=== PATIENT | male | born 1965 | race American Indian/Alaskan Native ===

== ENCOUNTER 2018-07-23 18:28 | Emergency (ER) | payer SELFPAY ==
[2018-07-23] MEDS ORDERED: CATAPRES ONE (18:58)
[2018-07-23] MEDS ORDERED: CATAPRES PO ONE (18:59)
[2018-07-23] MEDS ORDERED: APRESOLINE IV ONE ×2 (19:32→21:20)
--- NOTE | 2018-07-23 19:46 | Emergency Department Report ---
HPI - General Chief Complaint: Extremity Injury, Lower Time Seen by Provider: 07/23/18 19:23 - HPI HPI: [id number] male presents to the emergency department with complaint of a 2 day history of pain to both his feet. It is a sharp, intense and burning pain that worsens when he tries to ambulate or bear weight on them. He denies any skin color change, swelling. He has never had these symptoms before. The patient has a history of hypertension, buk-irysgkm-rhyscgggu diabetes, coronary artery disease with previous LA and coronary stents in place. The patient presented with extremely elevated blood pressure despite compliance with his hydrochlorothiazide and amlodipine. He says that he stopped taking the metformin for his diabetes because it made him feel weird. He does drink multiple caffeinated drinks throughout the day. He denies any fever, chest pain, shortness of breath, back pain. He has not taken anything for his symptoms prior to presentation. ED Past Medical Hx - Past Medical History Previous Medical History?: Yes Hx Hypertension: Yes Hx Heart Attack/AMI: Yes Hx Congestive Heart Failure: Yes Hx Diabetes: Yes Hx Asthma: No Hx COPD: No Additional medical history: CAD - Surgical History Hx Coronary Stent: Yes - Social History Smoking Status: Never Smoker Substance Use Type: None - Medications Home Medications: Home Medications Medication Instructions Recorded Confirmed Last Taken Type Aspirin [Aspirin BABY CHEW TAB] 81 mg PO QDAY #30 tab.chew 10/15/14 02/12/16 Unknown Rx Lisinopril [Zestril TAB] 40 mg PO QDAY #30 tablet 10/15/14 02/12/16 Unknown Rx amLODIPine [Norvasc] 10 mg PO QDAY #30 tablet 10/15/14 02/12/16 Unknown Rx Aspirin [Aspirin TAB] 325 mg PO QDAY #30 tablet 02/12/16 Unknown Rx AtorvaSTATin [Lipitor] 40 mg PO QHS #30 tablet 02/12/16 Unknown Rx Clopidogrel [Plavix] 75 mg PO QDAY #30 tablet 02/12/16 Unknown Rx Furosemide [Lasix TAB] 40 mg PO QDAY #30 tablet 02/12/16 Unknown Rx ISOSORBIDE MONOnitrate [Imdur ER] 30 mg PO QDAY #30 tablet 02/12/16 Unknown Rx Insulin Glargine [Lantus VIAL] 20 units SUB-Q QHS #30 units 02/12/16 Unknown Rx Lisinopril [Zestril TAB] 40 mg PO DAILY #30 tablet 02/12/16 Unknown Rx Metoprolol [Lopressor TAB] 100 mg PO BID #60 tablet 02/12/16 Unknown Rx amLODIPine [Norvasc] 5 mg PO QDAY #30 tablet 02/12/16 Unknown Rx metFORMIN [Glucophage] 1,000 mg PO BIDDIAB #120 tablet 02/12/16 Unknown Rx Gabapentin [Neurontin] 300 mg PO BID #14 cap 07/23/18 Unknown Rx ED Review of Systems ROS: Stated complaint: FEET PAIN Other details as noted in HPI Comment: All other systems reviewed and negative Constitutional: denies: chills, fever Eyes: denies: eye pain, eye discharge, vision change ENT: denies: ear pain, throat pain Respiratory: denies: cough, shortness of breath, wheezing Cardiovascular: denies: chest pain, palpitations Gastrointestinal: denies: abdominal pain, nausea, diarrhea Genitourinary: denies: urgency, dysuria Musculoskeletal: arthralgia, myalgia. denies: joint swelling Skin: denies: rash, lesions Neurological: denies: headache, weakness Physical Exam - Physical Exam Vital Signs: Vital Signs 07/23/18 07/23/18 07/23/18 18:47 19:18 19:27 Temperature 99.4 F 98.4 F Pulse Rate 94 H 94 H Respiratory 18 11 L Rate Blood Pressure 263/165 Blood Pressure 230/121 [Left] O2 Sat by Pulse 96 100 100 Oximetry Physical Exam: GENERAL: The patient is well-developed well-nourished. HENT: Normocephalic. Atraumatic. Patient has moist mucous membranes. EYES: Extraocular motions are intact. Pupils equal reactive to light bilaterally. NECK: Supple. Trachea is midline. CHEST/LUNGS: Clear to auscultation. There is no respiratory distress noted. HEART/CARDIOVASCULAR: Regular. There is no tachycardia. There is no murmur. ABDOMEN: Abdomen is soft, nontender. Patient has normal bowel sounds. There is no abdominal distention. SKIN: Skin is warm and dry. NEURO: The patient is awake, alert, and oriented. The patient is cooperative. The patient has no focal neurologic deficits. The patient has normal speech. MUSCULOSKELETAL: Unable to reproduce foot tenderness to palpation. There is no limitation range of motion. There is no evidence of acute injury. Capillary refill less than 2 seconds and dorsalis pedis pulse +2 over 4 to the bilateral feet. ED Course Vital Signs 07/23/18 07/23/18 07/23/18 18:47 19:18 19:27 Temperature 99.4 F 98.4 F Pulse Rate 94 H 94 H Respiratory 18 11 L Rate Blood Pressure 263/165 Blood Pressure 230/121 [Left] O2 Sat by Pulse 96 100 100 Oximetry ED Medical Decision Making - Lab Data Result diagrams: 07/23/18 19:45 07/23/18 19:45 - EKG Data -: EKG Interpreted by Ne EKG shows normal: sinus rhythm, axis (left axis deviation), intervals, QRS complexes (LVH), ST-T waves (early repolarization) Rate: normal - EKG Data When compared to previous EKG there are: previous EKG unavailable Interpretation: LVH (early repolarization, sinus rhythm) - Medical Decision Making Patient presents with a few days of bilateral foot pain. Coincidentally, he presents with very elevated blood pressure despite compliance with his blood pressure medications. He denies any headache, chest pain, shortness of breath or any other obvious sequela of this elevated blood pressure. His complete blood count was normal. His metabolic panel also was normal including no signs of any renal insufficiency and he had euglycemia despite his history of diabetes without taking metformin. The patient was given a few doses of blood pressure medications and his blood pressure came down to a much more reasonable level. He says that he regularly checks his blood pressure and it is never as high as it was earlier today. Regarding the patient's foot pain, there are no signs of any swelling, cellulitis. He has good pedal pulses and capillary refill. It is possible that the patient has some neuropathy but it could also be osteoarthritis, plantar fasciitis versus other. The patient was given a dose of Toradol and says that that did help with his discomfort. He appears safe for discharge home at this time. He has been given multiple primary care clinics in the area to establish care. We discussed dietary and/or lifestyle changes to make to assist with his blood pressure. He will be started on a short course of Neurontin for suspected peripheral neuropathy. He will return to the ER with any worsening of symptoms or any acute distress. - Differential Diagnosis osteoarthritis, plantar fasciitis, peripheral neuropathy Critical Care Time: No Critical care attestation.: If time is entered above; I have spent that time in minutes in the direct care of this critically ill patient, excluding procedure time. ED Disposition Clinical Impression: Foot pain, bilateral Hypertension Qualifiers: Hypertension type: essential hypertension Qualified Code(s): I10 - Essential ( primary) hypertension Peripheral neuropathy Qualifiers: Peripheral neuropathy type: polyneuropathy, unspecified Qualified Code(s): G62.9 - Polyneuropathy, unspecified Disposition: TO HOME OR SELFCARE Is pt being admited?: No Condition: Stable Instructions: Diabetic Neuropathy (ED), Hypertension (ED) Additional Instructions: Please follow up with a primary care physician and a scraper tender. I am giving you a referral for multiple different primary care clinics in the area as well as the name of 2 different podiatrists. Please try and stay away from foods that are high in salt and caffeinated products. Keep a blood pressure log. Return to the emergency Department with any worsening of your symptoms or any acute distress. Prescriptions: Gabapentin [Neurontin] 300 mg PO BID #14 cap Referrals: [facility] [Outside] - 3-5 Days [facility] [Outside] - 3-5 Days [facility] [Outside] - 3-5 Days [facility] [Outside] - 3-5 Days AAYUSH SPEAR MD [Staff Physician] - 3-5 Days ACOSTA WALKER DPM [Staff Physician] - 3-5 Days Time of Disposition: 22:22
[2018-07-23 19:54] LABS: Basophils # (Auto) 0.1 K/mm3 (0.0-0.1); Basophils % (Auto) 0.9 % (0.0-1.8); Eosinophils # (Auto) 0.1 K/mm3 (0.0-0.4); Hematocrit 45.3 % (35.5-45.6); Hemoglobin 15.5 gm/dl (11.8-15.2); Lymphocytes # (Auto) 1.5 K/mm3 (1.2-5.4); Lymphocytes % (Auto) 25.6 % (13.4-35.0); Mean Corpuscular HGB Conc 34 % (32-34); Mean Corpuscular Hemoglobin 30 pg (28-32); Mean Corpuscular Volume 87 fl (84-94); Monocytes # (Auto) 0.5 K/mm3 (0.0-0.8); Monocytes % (Auto) 8.3 % (0.0-7.3); Platelet Count 177 K/mm3 (140-440); Red Blood Count 5.19 M/mm3 (3.65-5.03); Red Cell Distribution Width 13.6 % (13.2-15.2)
[2018-07-23 20:09] LABS: Alanine Aminotransferase 24 units/L (7-56); Albumin 4.3 g/dL (3.9-5); BUN/Creatinine Ratio 17; Blood Urea Nitrogen 15 mg/dL (9-20); Calcium 9.4 mg/dL (8.4-10.2); Hemolysis Index 0
[2018-07-23] MEDS ORDERED: TORADOL IV ONE (21:20)
[2018-07-23] MEDS ORDERED: TORADOL ONE (21:25)
[2018-07-23 22:30] VITALS: BP 173/87
== END 2018-07-23 22:34 | disposition home or self-care (01) ==
LOC: ED 18:28
DX: G62.9 Polyneuropathy, unspecified (principal); I11.0 Hypertensive heart disease with heart failure; I50.9 Heart failure, unspecified; E11.9 Type 2 diabetes mellitus without complications; Z86.73 Personal history of transient ischemic attack (TIA), and cerebral infarction without residual deficits; Z91.013 Allergy to seafood; Z79.84 Long term (current) use of oral hypoglycemic drugs
CPT/HCPCS: 36415; 80053; 85025; 93005; 93010; 96374; 96375; 99283; J0360; J1885

== ENCOUNTER 2021-03-26 05:05 | Emergency (ER) | payer SELFPAY ==
[2021-03-26 05:33] VITALS: BP 248/126
[2021-03-26] MEDS ORDERED: KETOROLAC 30 MG/1 ML INJ IM ONE (06:04)
[2021-03-26] MEDS ORDERED: oxyCODONE /ACETAMINOPHEN 5-325MG TAB PO ONE (06:05)
[2021-03-26] MEDS ORDERED: ONDANSETRON 4 MG ODT TAB PO ONE (06:06)
--- NOTE | 2021-03-26 06:08 | Emergency Department Report ---
ED General Adult HPI - General Chief complaint: Neck Pain/Injury Stated complaint: NECK PAIN Source: patient, family Mode of arrival: Ambulatory Limitations: No Limitations - History of Present Illness Initial comments: Patient is a 55-year-old -[place] male with a history of hypertension, [id number] diabetes, coronary artery disease s/p HI and CHF who presents to the ED with complaint of acute onset persistent severe right lateral neck pain that radiates to the right shoulder for the last 2 hours. Patient states that he was asleep at home when he turned to wake up but felt sharp pain on his right lateral neck that radiates to the right shoulder in and right posterior upper thoracic area. Patient states that he is unable to perform any active range of motion or twist his neck laterally and to the right side because of worsening pain. Patient states that at rest the pain is intermittent but waxes and wanes. Patient denies chest pain, shortness of breath, heavy lifting, fall, dizziness, syncope, headache, nausea and vomiting, cough, fever, chills, heavy lifting or traumatic injury. MD Complaint: Right lateral neck pain -: Sudden, hour(s) (2) Location: neck (right sided lateral neck pain) Radiation: extremity (right shoulder) Severity scale (0 -10): 8 Quality: aching, sharp Consistency: constant Improves with: none Worsens with: movement Associated Symptoms: denies: confusion, chest pain, cough, diaphoresis, fever/chills, headaches, loss of appetite, malaise, nausea/vomiting, rash, sei zure, shortness of breath, syncope, weakness Treatments Prior to Arrival: none - Related Data Previous Rx's Medication Instructions Recorded Last Taken Type Aspirin [Aspirin BABY CHEW TAB] 81 mg PO QDAY #30 tab.chew 10/15/14 Unknown Rx amLODIPine 10 mg PO QDAY #30 tablet 10/15/14 Unknown Rx lisinopriL [Zestril TAB] 40 mg PO QDAY #30 tablet 10/15/14 Unknown Rx Aspirin 325 mg PO QDAY #30 tablet 02/12/16 Unknown Rx AtorvaSTATin [Lipitor] 40 mg PO QHS #30 tablet 02/12/16 Unknown Rx Clopidogrel [Plavix] 75 mg PO QDAY #30 tablet 02/12/16 Unknown Rx Furosemide [Lasix TAB] 40 mg PO QDAY #30 tablet 04/09/16 Unknown Rx ISOSORBIDE MONOnitrate [Imdur ER] 30 mg PO QDAY #30 tablet 02/12/16 Unknown Rx Insulin Glargine [Lantus VIAL] 20 units SUB-Q QHS #30 units 02/12/16 Unknown Rx Metoprolol [Lopressor TAB] 100 mg PO BID #60 tablet 02/12/16 Unknown Rx amLODIPine 5 mg PO QDAY #30 tablet 02/12/16 Unknown Rx lisinopriL [Zestril TAB] 40 mg PO DAILY #30 tablet 02/12/16 Unknown Rx metFORMIN [Glucophage] 1,000 mg PO BIDDIAB #120 tablet 02/12/16 Unknown Rx Gabapentin 300 mg PO BID #14 cap 07/23/18 Unknown Rx Carisoprodol [Soma] 350 mg PO Q8H PRN #30 tablet 03/26/21 Unknown Rx Naproxen 500 mg PO Q12H PRN #30 tablet 03/26/21 Unknown Rx traMADoL [Ultram] 50 mg PO Q6HR PRN #12 tablet 03/26/21 Unknown Rx Allergies Allergy/AdvReac Type Severity Reaction Status Date / Time shellfish derived Allergy swelling Verified 07/23/18 18:47 and vomiting ED Review of Systems ROS: Stated complaint: NECK PAIN Other details as noted in HPI Constitutional: denies: chills, fever Eyes: denies: eye pain, eye discharge, vision change ENT: denies: ear pain, throat pain Respiratory: denies: cough, shortness of breath, wheezing Cardiovascular: denies: chest pain, palpitations Endocrine: no symptoms reported Gastrointestinal: denies: abdominal pain, nausea, diarrhea Genitourinary: denies: urgency, dysuria Musculoskeletal: arthralgia (Right lateral neck pain; right sternocleidomastoid muscle pain). denies: back pain, joint swelling Skin: denies: rash, lesions Neurological: denies: headache, weakness, paresthesias Psychiatric: denies: anxiety, depression Hematological/Lymphatic: denies: easy bleeding, easy bruising ED Past Medical Hx - Past Medical History Hx Hypertension: Yes Hx Heart Attack/AMI: Yes Hx Congestive Heart Failure: Yes Hx Diabetes: Yes Hx Asthma: No Hx COPD: No Additional medical history: CAD - Surgical History Hx Coronary Stent: Yes - Social History Smoking Status: Never Smoker Substance Use Type: Alcohol - Medications Home Medications: Home Medications Medication Instructions Recorded Confirmed Last Taken Type Aspirin [Aspirin BABY CHEW TAB] 81 mg PO QDAY #30 tab.chew 10/15/14 02/12/16 Unknown Rx amLODIPine 10 mg PO QDAY #30 tablet 10/15/14 02/12/16 Unknown Rx lisinopriL [Zestril TAB] 40 mg PO QDAY #30 tablet 10/15/14 02/12/16 Unknown Rx Aspirin 325 mg PO QDAY #30 tablet 02/12/16 Unknown Rx AtorvaSTATin [Lipitor] 40 mg PO QHS #30 tablet 02/12/16 Unknown Rx Clopidogrel [Plavix] 75 mg PO QDAY #30 tablet 02/12/16 Unknown Rx Furosemide [Lasix TAB] 40 mg PO QDAY #30 tablet 02/12/16 Unknown Rx ISOSORBIDE MONOnitrate [Imdur ER] 30 mg PO QDAY #30 tablet 02/12/16 Unknown Rx Insulin Glargine [Lantus VIAL] 20 units SUB-Q QHS #30 units 02/12/16 Unknown Rx Metoprolol [Lopressor TAB] 100 mg PO BID #60 tablet 02/12/16 Unknown Rx amLODIPine 5 mg PO QDAY #30 tablet 02/12/16 Unknown Rx lisinopriL [Zestril TAB] 40 mg PO DAILY #30 tablet 02/12/16 Unknown Rx metFORMIN [Glucophage] 1,000 mg PO BIDDIAB #120 tablet 02/12/16 Unknown Rx Gabapentin 300 mg PO BID #14 cap 07/23/18 Unknown Rx Carisoprodol [Soma] 350 mg PO Q8H PRN #30 tablet 03/26/21 Unknown Rx Naproxen 500 mg PO Q12H PRN #30 tablet 03/26/21 Unknown Rx traMADoL [Ultram] 50 mg PO Q6HR PRN #12 tablet 03/26/21 Unknown Rx ED Physical Exam - General Limitations: No Limitations General appearance: alert, in no apparent distress - Head Head exam: Present: atraumatic, normocephalic, normal inspection - Eye Eye exam: Present: normal appearance, PERRL, EOMI Pupils: Present: normal accommodation - ENT ENT exam: Present: normal exam, normal orophraynx, mucous membranes moist, TM's normal bilaterally, normal external ear exam - Neck Neck exam: Present: normal inspection, tenderness (Palpable severe right lateral sternocleidomastoid tenderness; palpable right lateral cervical paraspinal musculoskeletal tenderness with limited range of motion due to pain). Absent: full ROM, lymphadenopathy, thyromegaly - Respiratory Respiratory exam: Present: normal lung sounds bilaterally. Absent: respiratory distress, wheezes, rales, rhonchi, chest wall tenderness, accessory muscle use, prolonged expiratory - Cardiovascular Cardiovascular Exam: Present: regular rate, normal rhythm, normal heart sounds. Absent: systolic murmur, diastolic murmur, rubs, gallop - GI/Abdominal GI/Abdominal exam: Present: soft, normal bowel sounds. Absent: tenderness, guarding, rebound, hyperactive bowel sounds, hypoactive bowel sounds, organomegaly - Extremities Exam Extremities exam: Present: normal inspection, full ROM, tenderness (Palpable right lateral shoulder tenderness), normal capillary refill. Absent: pedal edema, joint swelling - Back Exam Back exam: Present: normal inspection, full ROM. Absent: tenderness, CVA tenderness (R), CVA tenderness (L), muscle spasm, paraspinal tenderness, vertebral tenderness - Neurological Exam Neurological exam: Present: alert, oriented X3, CN II-XII intact, normal gait, reflexes normal - Psychiatric Psychiatric exam: Present: normal affect, normal mood - Skin Skin exam: Present: warm, dry, intact, normal color. Absent: rash ED Course Vital Signs 03/26/21 05:32 Temperature 97.9 F Pulse Rate 88 Respiratory 18 Rate Blood Pressure 248/126 O2 Sat by Pulse 99 Oximetry ED Medical Decision Making - Medical Decision Making This is a 55-year-old -[place] male with a history of hypertension, [id number] diabetes, coronary artery disease s/p HI and CHF who presents to the ED with complaint of acute onset persistent severe right lateral neck pain that radiates to the right shoulder for the last 2 hours. Patient states that he was asleep at home when he turned to wake up but felt sharp pain on his right lateral neck that radiates to the right shoulder in and right posterior upper thoracic area. Patient states that he is unable to perform any active range of motion or twist his neck laterally and to the right side because of worsening pain. Patient states that at rest the pain is intermittent but waxes and wanes. In the ED, patient is alert and oriented x3 and is not in distress but appears to be in significant pain. Patient was treated in the ED for pain based on the physical exam findings and history concerning for acute torticollis on the right side or cervical sprain or cervical muscle strain as well as strain right-sided sternocleidomastoid. Patient was observed in the ED and on reevaluation, patient's pain is well controlled with medications. Patient was therefore discharged home on pain medications and advised to follow- up with his primary care physician in 5 to 7 days for reevaluation or return to the ED immediately if symptoms get worse. - Differential Diagnosis Cervical sprain; torticollis; cervical spine muscle strain; muscle spasm Critical care attestation.: If time is entered above; I have spent that time in minutes in the direct care of this critically ill patient, excluding procedure time. ED Disposition Clinical Impression: Right torticollis, Cervical paraspinal muscle spasm Strain of sternocleidomastoid muscle Qualifiers: Encounter type: initial encounter Qualified Code(s): S16.1XXA - Strain of muscle, fascia and tendon at neck level, initial encounter Disposition: TO HOME OR SELFCARE Is pt being admited?: No Does the pt Need Aspirin: No Condition: Stable Instructions: Muscle Cramps and Spasms, Yhga-ov-Nanz, Cervical Sprain, Acute Torticollis, Adult, Cervical Strain and Sprain Rehab-SportsMed Additional Instructions: Your symptoms are likely due to muscle strain of your neck which gets worse with any active range of motion of your neck. Therefore take medications with food, drink plenty of fluids and follow-up with your primary care physician in 3 to 5 days for reevaluation. Return to the ED immediately if symptoms get worse. Prescriptions: Naproxen 500 mg PO Q12H PRN #30 tablet PRN Reason: Pain , Severe (7-10) Carisoprodol [Soma] 350 mg PO Q8H PRN #30 tablet PRN Reason: Muscle Spasm traMADoL [Ultram] 50 mg PO Q6HR PRN #12 tablet PRN Reason: Pain Referrals: [facility] [Provider Group] - 3-5 Days Time of Disposition: 06:39 Print Language: PERUVIAN
== END 2021-03-26 07:30 | disposition home or self-care (01) ==
LOC: ED 05:05
DX: S16.1XXA Strain of muscle, fascia and tendon at neck level, initial encounter (principal); M43.6 Torticollis; M62.838 Other muscle spasm; I11.0 Hypertensive heart disease with heart failure; I50.9 Heart failure, unspecified; I25.2 Old myocardial infarction; E11.9 Type 2 diabetes mellitus without complications; I25.10 Atherosclerotic heart disease of native coronary artery without angina pectoris; Z91.013 Allergy to seafood; Z79.899 Other long term (current) drug therapy; X58.XXXA Exposure to other specified factors, initial encounter; Y93.89 Activity, other specified; Y92.89 Other specified places as the place of occurrence of the external cause; Y99.8 Other external cause status
CPT/HCPCS: 96372; 99283; J1885; Q0162

== ENCOUNTER 2021-07-19 17:42 | Inpatient (IN) | payer SELFPAY ==
--- NOTE | 2021-07-19 20:04 | Event Note ---
ED Screening Note ED Screening Note: 56-year-old F Citizen Of [place] male past no history of hypertension presents emergency department complaining of strokelike symptoms which started about 4 5 5 days ago and continued to linger since the onset also reports not been able to talk since the symptoms started. Currently has a dull dull headache but reports no palpitations. This initial assessment/diagnostic orders/clinical plan/treatment(s) is/are subject to change based on patients health status, clinical progression and re- assessment by fellow clinical providers in the ED. Further treatment and workup at subsequent clinical providers discretion. Patient/guardian urged not to elope from the ED as their condition may be serious if not clinically assessed and managed. Initial orders include: Labs, CT
[2021-07-19 20:25] LABS: Basophils # (Auto) 0.1 K/mm3 (0.0-0.1); Basophils % (Auto) 1.2 % (0.0-1.8); Eosinophils # (Auto) 0.1 K/mm3 (0.0-0.4); Hematocrit 47.8 % (35.5-45.6); Hemoglobin 16.2 gm/dl (11.8-15.2); Lymphocytes # (Auto) 2.4 K/mm3 (1.2-5.4); Lymphocytes % (Auto) 30.6 % (13.4-35.0); Mean Corpuscular HGB Conc 34 % (32-34); Mean Corpuscular Volume 89 fl (84-94); Monocytes # (Auto) 0.6 K/mm3 (0.0-0.8); Monocytes % (Auto) 7.7 % (0.0-7.3); Platelet Count 173 K/mm3 (140-440); Red Blood Count 5.36 M/mm3 (3.65-5.03); Red Cell Distribution Width 13.2 % (13.2-15.2)
[2021-07-19 20:37] LABS: INR 0.94 (0.87-1.13)
[2021-07-19 20:38] LABS: Partial Thromboplastin Time 27.6 Sec. (24.2-36.6); Thrombin Time 16.7 Sec. (15.1-19.6)
[2021-07-19 20:45] LABS: Alanine Aminotransferase 14 units/L (7-56); Albumin 4.5 g/dL (3.9-5); BUN/Creatinine Ratio 20; Blood Urea Nitrogen 20 mg/dL (9-20); Calcium 9.5 mg/dL (8.4-10.2); Hemolysis Index 20
[2021-07-19 20:48] LABS: Creatine Kinase MB 2.7 ng/mL (0.0-4.0)
--- NOTE | 2021-07-19 21:03 | Emergency Department Report ---
ED Neuro Deficit HPI - General Chief Complaint: Neuro Symptoms/Deficit Stated Complaint: SORETHROAT Time Seen by Provider: 07/19/21 20:39 Source: family Mode of arrival: Ambulatory Limitations: Other - History of Present Illness Initial Comments: Patient is 56 years old male with history of hypertension and previous stroke approximately 10 years ago according to the patient report with no residual. Patient presented to the ER today complaining of unable to speak since Sunday approximately 3 days ago. Patient did not seek medical attention. Patient is also complaining of left upper extremity weakness and left facial droop. Patient also complaining of mild headache. Patient denied any chest pain or shortness of breath. Patient also denied any ataxia or visual changes. - Related Data Home Medications: Previous Rx's Medication Instructions Recorded Last Taken Type Aspirin [Aspirin BABY CHEW TAB] 81 mg PO QDAY #30 tab.chew 10/15/14 Unknown Rx amLODIPine 10 mg PO QDAY #30 tablet 10/15/14 Unknown Rx lisinopriL [Zestril TAB] 40 mg PO QDAY #30 tablet 10/15/14 Unknown Rx Aspirin 325 mg PO QDAY #30 tablet 02/12/16 Unknown Rx AtorvaSTATin [Lipitor] 40 mg PO QHS #30 tablet 02/12/16 Unknown Rx Clopidogrel [Plavix] 75 mg PO QDAY #30 tablet 02/12/16 Unknown Rx Furosemide [Lasix TAB] 40 mg PO QDAY #30 tablet 02/12/16 Unknown Rx ISOSORBIDE MONOnitrate [Imdur ER] 30 mg PO QDAY #30 tablet 02/12/16 Unknown Rx Insulin Glargine [Lantus VIAL] 20 units SUB-Q QHS #30 units 02/12/16 Unknown Rx Metoprolol [Lopressor TAB] 100 mg PO BID #60 tablet 02/12/16 Unknown Rx amLODIPine 5 mg PO QDAY #30 tablet 02/12/16 Unknown Rx lisinopriL [Zestril TAB] 40 mg PO DAILY #30 tablet 02/12/16 Unknown Rx metFORMIN [Glucophage] 1,000 mg PO BIDDIAB #120 tablet 02/12/16 Unknown Rx Gabapentin 300 mg PO BID #14 cap 07/23/18 Unknown Rx Carisoprodol [Soma] 350 mg PO Q8H PRN #30 tablet 03/26/21 Unknown Rx Naproxen 500 mg PO Q12H PRN #30 tablet 03/26/21 Unknown Rx traMADoL [Ultram] 50 mg PO Q6HR PRN #12 tablet 03/26/21 Unknown Rx Allergies/Adverse Reactions: Allergies Allergy/AdvReac Type Severity Reaction Status Date / Time shellfish derived Allergy swelling Verified 07/19/21 19:42 and vomiting ED Review of Systems ROS: Stated complaint: SORETHROAT Other details as noted in HPI Comment: All other systems reviewed and negative Constitutional: denies: chills, fever Respiratory: denies: cough, shortness of breath, SOB with exertion Cardiovascular: denies: chest pain, palpitations Gastrointestinal: denies: abdominal pain, nausea, vomiting Musculoskeletal: denies: back pain Neurological: headache. denies: weakness, numbness, paresthesias, confusion, abnormal gait ED Past Medical Hx - Past Medical History Hx Hypertension: Yes Hx Heart Attack/AMI: Yes Hx Congestive Heart Failure: Yes Hx Diabetes: Yes Hx Asthma: No Hx COPD: No Additional medical history: CAD - Surgical History Hx Coronary Stent: Yes - Social History Smoking Status: Never Smoker - Medications Home Medications: Home Medications Medication Instructions Recorded Confirmed Last Taken Type Aspirin [Aspirin BABY CHEW TAB] 81 mg PO QDAY #30 tab.chew 10/15/14 02/12/16 Unknown Rx amLODIPine 10 mg PO QDAY #30 tablet 10/15/14 02/12/16 Unknown Rx lisinopriL [Zestril TAB] 40 mg PO QDAY #30 tablet 10/15/14 02/12/16 Unknown Rx Aspirin 325 mg PO QDAY #30 tablet 02/12/16 Unknown Rx AtorvaSTATin [Lipitor] 40 mg PO QHS #30 tablet 02/12/16 Unknown Rx Clopidogrel [Plavix] 75 mg PO QDAY #30 tablet 02/12/16 Unknown Rx Furosemide [Lasix TAB] 40 mg PO QDAY #30 tablet 02/12/16 Unknown Rx ISOSORBIDE MONOnitrate [Imdur ER] 30 mg PO QDAY #30 tablet 02/12/16 Unknown Rx Insulin Glargine [Lantus VIAL] 20 units SUB-Q QHS #30 units 02/12/16 Unknown Rx Metoprolol [Lopressor TAB] 100 mg PO BID #60 tablet 02/12/16 Unknown Rx amLODIPine 5 mg PO QDAY #30 tablet 02/12/16 Unknown Rx lisinopriL [Zestril TAB] 40 mg PO DAILY #30 tablet 02/12/16 Unknown Rx metFORMIN [Glucophage] 1,000 mg PO BIDDIAB #120 tablet 02/12/16 Unknown Rx Gabapentin 300 mg PO BID #14 cap 07/23/18 Unknown Rx Carisoprodol [Soma] 350 mg PO Q8H PRN #30 tablet 03/26/21 Unknown Rx Naproxen 500 mg PO Q12H PRN #30 tablet 03/26/21 Unknown Rx traMADoL [Ultram] 50 mg PO Q6HR PRN #12 tablet 03/26/21 Unknown Rx ED Neuro Physical Exam - General Limitations: Other General appearance: alert, in no apparent distress Suspected Stroke: Yes - Head Head exam: Present: atraumatic, normocephalic, normal inspection - Eye Eye exam: Present: normal appearance - ENT ENT exam: Present: normal exam, normal orophraynx, mucous membranes moist - Neck Neck exam: Present: normal inspection, full ROM. Absent: tenderness, meningismus - Respiratory Respiratory exam: Present: normal lung sounds bilaterally - Cardiovascular Cardiovascular Exam: Present: regular rate, normal rhythm, normal heart sounds - GI/Abdominal GI/Abdominal exam: Present: soft, normal bowel sounds. Absent: distended, tenderness, guarding, rebound, rigid, organomegaly, mass, bruit, pulsatile mass, hernia - Extremities Exam Extremities exam: Present: normal inspection, full ROM, normal capillary refill. Absent: tenderness, pedal edema, joint swelling, calf tenderness - Back Exam Back exam: Present: normal inspection, full ROM. Absent: CVA tenderness (R), CVA tenderness (L) - Neurological Exam Neurological exam: Present: alert, oriented X3 - NIHSS Assessment Interval: Baseline 1a. Level of Consciousness: alert/keenly responsive 1b. LOC Questions: answers both correctly 1c. LOC Commands: performs tasks correctly 2. Best Gaze: normal 3. Visual: no visual loss 4. Facial Palsy: partial paralysis 5b. Motor Arm Right: no drift 5a. Motor Arm Left: no drift 6a. Motor Leg Left: no drift 6b. Motor Leg Right: no drift 7. Limb Ataxia: absent 8. Sensory: normal 9. Best Language: severe aphasia 10. Dysarthria: mute/anarrthric 11. Extinction/Inattention: no abnormality Total Score: 6 Stroke Severity: Moderate Stroke - Psychiatric Psychiatric exam: Present: flat affect - Skin Skin exam: Present: warm, intact, normal color ED Course Vital Signs 07/19/21 07/19/21 07/19/21 19:42 19:45 20:40 Temperature 98.7 F Pulse Rate 87 82 Respiratory 15 Rate Blood Pressure Blood Pressure 220/96 [Right] O2 Sat by Pulse 97 96 Oximetry 07/19/21 07/19/21 07/19/21 20:46 20:51 21:24 Temperature Pulse Rate 80 80 Respiratory 14 18 10 L Rate Blood Pressure 115/38 228/131 Blood Pressure [Right] O2 Sat by Pulse 96 99 96 Oximetry 07/19/21 21:30 Temperature Pulse Rate 77 Respiratory 15 Rate Blood Pressure 228/131 Blood Pressure [Right] O2 Sat by Pulse 97 Oximetry - Lab Data Result diagrams: 07/19/21 20:11 07/19/21 20:11 Lab Results 07/19/21 07/19/21 07/19/21 Range/Units 20:03 20:11 20:11 WBC 8.0 (4.5-11.0) K/mm3 RBC 5.36 H (3.65-5.03) M/mm3 Hgb 16.2 H (11.8-15.2) gm/dl Hct 47.8 H (35.5-45.6) % MCV 89 (84-94) fl MCH 30 (28-32) pg MCHC 34 (32-34) % RDW 13.2 (13.2-15.2) % Plt Count 173 (140-440) K/mm3 Lymph % (Auto) 30.6 (13.4-35.0) % [place] % (Auto) 7.7 H (0.0-7.3) % Eos % (Auto) 1.0 (0.0-4.3) % Baso % (Auto) 1.2 (0.0-1.8) % Lymph # (Auto) 2.4 (1.2-5.4) K/mm3 [place] # (Auto) 0.6 (0.0-0.8) K/mm3 Eos # (Auto) 0.1 (0.0-0.4) K/mm3 Baso # (Auto) 0.1 (0.0-0.1) K/mm3 Seg Neutrophils % 59.5 (40.0-70.0) % Seg Neutrophils # 4.8 (1.8-7.7) K/mm3 PT 13.1 (12.2-14.9) Sec. INR 0.94 (0.87-1.13) APTT 27.6 (24.2-36.6) Sec. Thrombin Time 16.7 (15.1-19.6) Sec. Sodium (137-145) mmol/L Potassium (3.6-5.0) mmol/L Chloride (98-107) mmol/L Carbon Dioxide (22-30) mmol/L Anion Gap mmol/L BUN (9-20) mg/dL Creatinine (0.8-1.3) mg/dL Estimated GFR ml/min BUN/Creatinine Ratio % Glucose (75-100) mg/dL POC Glucose 79 (70-105) mg/dL Calcium (8.4-10.2) mg/dL Total Bilirubin (0.1-1.2) mg/dL AST (5-40) units/L ALT (7-56) units/L Alkaline Phosphatase (35-129) units/L Total Creatine Kinase (55-170) units/L CK-MB (CK-2) (0.0-4.0) ng/mL CK-MB (CK-2) Rel Index (0-4) Troponin T (0.00-0.029) ng/mL Total Protein (6.3-8.2) g/dL Albumin (3.9-5) g/dL Albumin/Globulin Ratio % 07/19/21 07/19/21 Range/Units 20:11 20:11 WBC (4.5-11.0) K/mm3 RBC (3.65-5.03) M/mm3 Hgb (11.8-15.2) gm/dl Hct (35.5-45.6) % MCV (84-94) fl MCH (28-32) pg MCHC (32-34) % RDW (13.2-15.2) % Plt Count (140-440) K/mm3 Lymph % (Auto) (13.4-35.0) % [place] % (Auto) (0.0-7.3) % Eos % (Auto) (0.0-4.3) % Baso % (Auto) (0.0-1.8) % Lymph # (Auto) (1.2-5.4) K/mm3 [place] # (Auto) (0.0-0.8) K/mm3 Eos # (Auto) (0.0-0.4) K/mm3 Baso # (Auto) (0.0-0.1) K/mm3 Seg Neutrophils % (40.0-70.0) % Seg Neutrophils # (1.8-7.7) K/mm3 PT (12.2-14.9) Sec. INR (0.87-1.13) APTT (24.2-36.6) Sec. Thrombin Time (15.1-19.6) Sec. Sodium 142 (137-145) mmol/L Potassium 4.1 (3.6-5.0) mmol/L Chloride 106.2 (98-107) mmol/L Carbon Dioxide 28 (22-30) mmol/L Anion Gap 12 mmol/L BUN 20 (9-20) mg/dL Creatinine 1.0 (0.8-1.3) mg/dL Estimated GFR > 60 ml/min BUN/Creatinine Ratio 20 % Glucose 92 (75-100) mg/dL POC Glucose (70-105) mg/dL Calcium 9.5 (8.4-10.2) mg/dL Total Bilirubin 1.10 (0.1-1.2) mg/dL AST 14 (5-40) units/L ALT 14 (7-56) units/L Alkaline Phosphatase 106 (35-129) units/L Total Creatine Kinase 111 (55-170) units/L CK-MB (CK-2) 2.7 (0.0-4.0) ng/mL CK-MB (CK-2) Rel Index 2.4 (0-4) Troponin T < 0.010 (0.00-0.029) ng/mL Total Protein 7.5 (6.3-8.2) g/dL Albumin 4.5 (3.9-5) g/dL Albumin/Globulin Ratio 1.5 % - EKG Data -: EKG Interpreted by Ak EKG shows normal: sinus rhythm Rate: normal Interpretation: no acute changes - Radiology Data Radiology results: report reviewed - Medical Decision Making Patient is 56 years old male with history of hypertension and previous stroke approximately 10 years ago according to the patient report with no residual. Patient presented to the ER today complaining of unable to speak since Sunday approximately 3 days ago. Patient did not seek medical attention. Patient is also complaining of left upper extremity weakness and left facial droop. Patient also complaining of mild headache. Patient denied any chest pain or shortness of breath. Patient also denied any ataxia or visual changes. Patient symptom has been going on for more than 3 days. Patient is not a TPA candidate or thrombectomy candidate. Stroke work-up initiated. CT brain without contrast is unremarkable. EKG shows sinus rhythm with no ST elevation or depression. Labs reviewed and is unremarkable. Patient blood pressure is 220/120. Patient given hydralazine and allowed permissive hypertension. I discussed the patient with Dr. Jeronimo, he agreed to admit the patient to medical service for further management. Critical Care Time: Yes Critical care time in (mins) excluding proc time.: 30 Critical care attestation.: If time is entered above; I have spent that time in minutes in the direct care of this critically ill patient, excluding procedure time. ED Disposition Clinical Impression: Acute CVA (cerebrovascular accident) Disposition: ADMITTED INPATIENT Is pt being admited?: Yes Condition: Stable
--- NOTE | 2021-07-19 21:25 | Cat Scan Report ---
. CT head/brain wo con INDICATION / CLINICAL INFORMATION: 56 years Male; Stroke symptoms. TECHNIQUE: Routine CT head without contrast. All CT scans at this location are performed using CT dos e reduction for ALARA by means of automated exposure control. COMPARISON: None. FINDINGS: BRAIN / INTRACRANIAL CONTENTS: Small lacunar infarcts are seen in the gangliocapsular regions, some o f which are age-indeterminate without diffusion imaging by MRI. Otherwise, no acute hemorrhage, mass effect, midline shift, hydrocephalus, or acute, large territori al infarct. No signs of significant atrophy or chronic infarct. There are moderate areas of decreased attenuation in the white matter of the cerebral hemispheres, as well as the gangliocapsular regions. These are nonspecific findings and may be related to microangio logan (hypertension, diabetes, atherosclerosis), given the patient's age. CRANIOCERVICAL JUNCTION: No significant abnormality. ORBITS: No significant abnormality of visualized orbits. SINUSES / MASTOIDS: Visualized paranasal sinuses and mastoid air cells are essentially clear. ADDITIONAL FINDINGS: Significant atherosclerotic disease seen in the anterior and posterior circulati on. IMPRESSION: 1. No focal mass, hemorrhage, hydrocephalus, or acute, large territorial infarct. Follow-up with diff usion imaging by MRI, as clinically warranted. Signer Name: Pawan Schmidt MD, III Signed: 07/19/2021 9:21 PM Workstation Name: [id number]
[2021-07-19] MEDS ORDERED: hydrALAZINE 20 MG/1 ML INJ IV ONE (21:28)
[2021-07-19] MEDS ORDERED: hydrALAZINE 20 MG/1 ML INJ ONE (21:29)
--- NOTE | 2021-07-19 21:41 | XRay Report ---
CHEST 1 VIEW 07/19/2021 8:00 PM INDICATION / CLINICAL INFORMATION: Dizziness and shortness of breath. COMPARISON: One view of the chest from 02/09/2016. FINDINGS: SUPPORT DEVICES: None. HEART / MEDIASTINUM: No significant abnormality. LUNGS / PLEURA: No significant pulmonary abnormality. No significant pleural effusion. No pneumothora x. ADDITIONAL FINDINGS: No significant additional findings. IMPRESSION: 1. No acute abnormality of the chest. Signer Name: Selvin Gonzales MD Signed: 07/19/2021 9:37 PM Workstation Name: [id number]
[2021-07-19] MEDS ORDERED: PROMETHAZINE 25 MG RECT SUPP PR PRN (22:35)
[2021-07-19] MEDS ORDERED: ACETAMINOPHEN 325 MG TAB PO PRN (22:35)
[2021-07-19] MEDS ORDERED: DEXTROSE 50% IN WATER (25GM) 50 ML SYRINGE IV PRN (22:35)
[2021-07-19] MEDS ORDERED: MAGNESIUM HYDROXIDE (MOM) ORAL LIQD UDC PO PRN ×2 (22:35)
[2021-07-19] MEDS ORDERED: MORPHINE 4 MG/1 ML INJ IV PRN (22:35)
[2021-07-19] MEDS ORDERED: ONDANSETRON 4 MG/2 ML INJ IV PRN ×2 (22:35)
[2021-07-19] MEDS ORDERED: MORPHINE 2 MG/1 ML INJ IV PRN (22:35)
[2021-07-19] MEDS ORDERED: METOCLOPRAMIDE 10 MG TAB PO PRN (22:35)
--- NOTE | 2021-07-19 22:56 | History and Physical Report ---
History of Present Illness Date of examination: 07/19/21 Date of admission: 07/19/21 21:58 Chief complaint: Left Sided weakness History of present illness: 56-year old -[place] male with known history of hypertension and CVA about 10 years ago presents to the emergency room room today complaining of inability to speak which has been ongoing for the past 3 days. Patient has also been having left upper and left lower extremity weakness with some facial droop. He denies any difficulty swallowing. Indicates he has been having some mild headache but no dizziness and no diaphoresis. Patient denies any chest pain or shortness of breath, no nausea vomiting, no abdominal pain. Patient had no residual deficit during the CVA about 10 years ago. Upon arrival in the emergency room blood pressure was quite elevated with systolic in the 200s and diastolic in the low 100s. Patient had a dose of IV hydralazine. Work-up in the emergency room today, chest x-ray and CT scan of the head were unremarkable. . Past History Past Medical History: acute HI, CAD, diabetes, heart failure, hypertension Past Surgical History: PTCA Social history: no significant social history Family history: no significant family history Medications and Allergies Allergies Allergy/AdvReac Type Severity Reaction Status Date / Time shellfish derived Allergy swelling Verified 07/19/21 19:42 and vomiting Home Medications Medication Instructions Recorded Confirmed Last Taken Type Aspirin [Aspirin BABY CHEW TAB] 81 mg PO QDAY #30 tab.chew 10/15/14 02/12/16 Unknown Rx amLODIPine 10 mg PO QDAY #30 tablet 10/15/14 02/12/16 Unknown Rx lisinopriL [Zestril TAB] 40 mg PO QDAY #30 tablet 10/15/14 02/12/16 Unknown Rx Aspirin 325 mg PO QDAY #30 tablet 02/12/16 Unknown Rx AtorvaSTATin [Lipitor] 40 mg PO QHS #30 tablet 02/12/16 Unknown Rx Clopidogrel [Plavix] 75 mg PO QDAY #30 tablet 02/12/16 Unknown Rx Furosemide [Lasix TAB] 40 mg PO QDAY #30 tablet 02/12/16 Unknown Rx ISOSORBIDE MONOnitrate [Imdur ER] 30 mg PO QDAY #30 tablet 02/12/16 Unknown Rx Insulin Glargine [Lantus VIAL] 20 units SUB-Q QHS #30 units 02/12/16 Unknown Rx Metoprolol [Lopressor TAB] 100 mg PO BID #60 tablet 02/12/16 Unknown Rx amLODIPine 5 mg PO QDAY #30 tablet 02/12/16 Unknown Rx lisinopriL [Zestril TAB] 40 mg PO DAILY #30 tablet 02/12/16 Unknown Rx metFORMIN [Glucophage] 1,000 mg PO BIDDIAB #120 tablet 02/12/16 Unknown Rx Gabapentin 300 mg PO BID #14 cap 07/23/18 Unknown Rx Carisoprodol [Soma] 350 mg PO Q8H PRN #30 tablet 03/26/21 Unknown Rx Naproxen 500 mg PO Q12H PRN #30 tablet 03/26/21 Unknown Rx traMADoL [Ultram] 50 mg PO Q6HR PRN #12 tablet 03/26/21 Unknown Rx Active Meds: Active Medications Acetaminophen (Acetaminophen 325 Mg Tab) 650 mg PO Q4H PRN PRN Reason: Pain MILD(1-3)/Fever >100.5/[place] Aspirin (Aspirin 325 Mg Tab) 325 mg PO QDAY PIED[place] Atorvastatin Calcium (Atorvastatin 40 Mg Tab) 40 mg PO QHS PIEDAD Bisacodyl (Bisacodyl 10 Mg Rect Supp) 10 mg ND QDAY PRN PRN Reason: Constipation Dextrose (Dextrose 50% In Water (25gm) 50 Ml Syringe) 50 ml IV Q30MIN PRN; Protocol PRN Reason: Hypoglycemia Dextrose (Dextrose 50% In Water (25gm) 50 Ml Syringe) 50 ml IV Q30MIN PRN; Protocol PRN Reason: Hypoglycemia Heparin Sodium (Porcine) (Heparin 5,000 Unit/1 Ml Vial) 5,000 unit SUB-Q Q8HR PIEDAD Hydralazine HCl (Hydralazine 20 Mg/1 Ml Inj) 10 mg IV Q4HR PRN PRN Reason: Blood Pressure Insulin Human Lispro (Insulin Lispro 100 Unit/Ml) 0 unit SUB-Q ACHS PIEDAD; Protocol Magnesium Hydroxide (Magnesium Hydroxide (Mom) Oral Liqd Udc) 30 ml PO Q4H PRN PRN Reason: Constipation Magnesium Hydroxide (Magnesium Hydroxide (Mom) Oral Liqd Udc) 30 ml PO Q4H PRN PRN Reason: Constipation Metoclopramide HCl (Metoclopramide 10 Mg Tab) 10 mg PO Q6H PRN PRN Reason: Nausea And Vomiting Morphine Sulfate (Morphine 2 Mg/1 Ml Inj) 2 mg IV Q4H PRN PRN Reason: Pain, Moderate (4-6) Morphine Sulfate (Morphine 4 Mg/1 Ml Inj) 4 mg IV Q4H PRN PRN Reason: Pain , Severe (7-10) Ondansetron HCl (Ondansetron 4 Mg/2 Ml Inj) 4 mg IV Q8H PRN PRN Reason: Nausea And Vomiting Ondansetron HCl (Ondansetron 4 Mg/2 Ml Inj) 4 mg IV Q8H PRN PRN Reason: Nausea And Vomiting Promethazine HCl (Promethazine 25 Mg Rect Supp) 25 mg ND Q6H PRN PRN Reason: Nausea And Vomiting Sodium Chloride (Sodium Chloride 0.9% 10 Ml Flush Syringe) 10 ml IV BID PIEDAD Sodium Chloride (Sodium Chloride 0.9% 10 Ml Flush Syringe) 10 ml IV PRN PRN PRN Reason: LINE FLUSH Sodium Chloride (Sodium Chloride 0.9% 10 Ml Flush Syringe) 10 ml INJ PRN PRN PRN Reason: LINE FLUSH Review of Systems Constitutional: no fever, no chills Ears, nose, mouth and throat: no nasal congestion, no sore throat Cardiovascular: no chest pain, no orthopnea, no palpitations Respiratory: no cough, no shortness of breath Gastrointestinal: no abdominal pain, no nausea, no vomiting, no diarrhea Genitourinary Male: no dysuria, no hematuria, no flank pain Musculoskeletal: no neck pain, no low back pain Integumentary: no rash, no pruritis Neurological: aphasia, paralysis (Left upper and lower extremity weakness.), no headaches, no confusion Psychiatric: no anxiety, no depression, no confusion Endocrine: no polyphagia, no polydipsia, no polyuria, no nocturia Exam - Constitutional Vitals: Temp Pulse Resp BP Pulse Ox 98.7 F 77 15 228/131 97 07/19/21 19:42 07/19/21 21:30 07/19/21 21:30 07/19/21 21:30 07/19/21 21:30 General appearance: Present: no acute distress, well-nourished - EENT Eyes: Present: PERRL, EOM intact. Absent: scleral icterus ENT: hearing intact, clear oral mucosa, dentition normal - Neck Neck: Present: supple, normal ROM - Respiratory Respiratory effort: normal Respiratory: bilateral: CTA - Cardiovascular Rhythm: regular Heart Sounds: Present: S1 & S2. Absent: gallop, systolic murmur, diastolic murmur, rub, click - Extremities Extremities: no ischemia, pulses intact, pulses symmetrical, No edema, normal temperature, normal color, Full ROM Peripheral Pulses: within normal limits - Abdominal General gastrointestinal: Present: soft, non-tender, non-distended, normal bowel sounds. Absent: mass - Integumentary Integumentary: Present: clear, warm, dry. Absent: rash - Musculoskeletal Musculoskeletal: left sided weakness - Psychiatric Psychiatric: appropriate mood/affect, memory intact, cooperative - Neurologic Neurologic: focal deficits (Mild faical assymetry), moves all extremities (Left upper and lower extremity weakness.) HEART Score - HEART Score Troponin: Troponin T < 0.010 ng/mL (0.00-0.029) 07/19/21 20:11 Results - Labs CBC & Chem 7: 07/20/21 04:38 07/20/21 04:38 Labs: Abnormal lab results 07/19/21 Range/Units 20:11 RBC 5.36 H (3.65-5.03) M/mm3 Hgb 16.2 H (11.8-15.2) gm/dl Hct 47.8 H (35.5-45.6) % [place] % (Auto) 7.7 H (0.0-7.3) % Assessment and Plan - Patient Problems (1) Acute CVA (cerebrovascular accident) Current Visit: Yes Status: Acute Plan to address problem: Patient admitted and placed on telemetry. We will commence patient on daily aspirin and statin. Patient will be scheduled for carotid Doppler, echocardiogram and MRI of the brain. Consult placed to neurologist for evaluation. (2) Accelerated hypertension Onset Date: 02/09/16 Current Visit: No Status: Acute Plan to address problem: We will allow patient for permissive hypertension in view of possible CVA. However we will monitor vital signs closely place patient on IV hydralazine as needed. (3) History of coronary artery disease Onset Date: 02/09/16 Current Visit: No Status: Acute Plan to address problem: We will continue routine home medications once reconciled. (4) Hyperlipidemia Current Visit: No Status: Acute Plan to address problem: Patient will be resumed on statin and will monitor lipid profile. (5) Diabetes Onset Date: 02/09/16 Current Visit: No Status: Chronic Plan to address problem: Patient placed on sliding scale insulin and Will monitor Accu-Cheks closely. (6) DVT prophylaxis Onset Date: 02/09/16 Current Visit: No Status: Acute Plan to address problem: Patient placed on subcutaneous heparin. (7) Full code status Current Visit: Yes Status: Acute Plan to address problem: Patient is full code.
[2021-07-19] MEDS ORDERED: LORazepam 2 MG/ML VIAL ONE (23:27)
[2021-07-20] MEDS ORDERED: LORazepam 2 MG/ML VIAL IV ONE (00:16)
[2021-07-20] MEDS ORDERED: hydrALAZINE 20 MG/1 ML INJ IV ONE (00:18)
[2021-07-20 05:14] LABS: Basophils % (Auto) 0.3 % (0.0-1.8); Eosinophils % (Auto) 0.3 % (0.0-4.3); Hematocrit 46.8 % (35.5-45.6); Lymphocytes # (Auto) 1.4 K/mm3 (1.2-5.4); Mean Corpuscular HGB Conc 34 % (32-34); Mean Corpuscular Volume 89 fl (84-94); Monocytes # (Auto) 0.4 K/mm3 (0.0-0.8); Monocytes % (Auto) 5.4 % (0.0-7.3); Platelet Count 169 K/mm3 (140-440); Red Blood Count 5.28 M/mm3 (3.65-5.03); Red Cell Distribution Width 13.3 % (13.2-15.2)
[2021-07-20 05:15] LABS: BUN/Creatinine Ratio 25; Blood Urea Nitrogen 20 mg/dL (9-20); Calcium 9.9 mg/dL (8.4-10.2); Hemolysis Index 11
[2021-07-20 05:45] LABS: Chol/HDL Ratio 4.24 %; HDL Cholesterol 49 mg/dL (40-59); LDL Cholesterol,Direct 164 mg/dL (50-130)
[2021-07-20] MEDS: HEPARIN 5,000 UNIT/1 ML VIAL SUB-Q SCH ×3 (07:00→22:09)
[2021-07-20] MEDS: INSULIN LISPRO 100 UNIT/ML SUB-Q SCH ×4 (07:51→22:09)
[2021-07-20] MEDS ORDERED: amLODIPine 5 MG TAB PO SCH (10:00)
--- NOTE | 2021-07-20 10:11 | Electrocardiograph Report ---
[facility] Test Date: 2021-07-19 Test Time: 20:08:02 Pat Name: EDGARDO ROMANO Department: Room: A472 1 Gender: M Wellness Coach: [id number] : 1965 Requested By: VANNESA MCCAULEY Order Number: [id number] Reading MD: Gianluca Frazier Measurements Intervals [place] Rate: 81 P: 58 RI: 137 QRS: 26 QRSD: 88 T: 134 QT: 379 QTc: 439 Interpretive Statements Sinus rhythm Probable left atrial enlargement Abnormal T, consider ischemia, lateral leads No previous ECG available for comparison Electronically Signed On 07-20-2021 10:11:12 EDT by Gianluca Frazier
--- NOTE | 2021-07-20 11:25 | Consultation ---
History of Present Illness Consult date: 07/20/21 Reason for Consult: CVA Chief complaint: Mute History of present illness: 56 yo male with htn, dm, chf, cva with left-sided symptoms, who presents with acute onset of muteness on 07/17/21. Limited history secondary to muteness. Deneis throat pain or sore throat. Past History Past Medical History: acute PR, CAD, diabetes, heart failure, hypertension Past Surgical History: PTCA Social history: no significant social history Family history: no significant family history Medications and Allergies Allergies Allergy/AdvReac Type Severity Reaction Status Date / Time shellfish derived Allergy swelling Verified 07/19/21 19:42 and vomiting Home Medications Medication Instructions Recorded Confirmed Last Taken Type Aspirin [Aspirin BABY CHEW TAB] 81 mg PO QDAY #30 tab.chew 10/15/14 02/12/16 Unknown Rx amLODIPine 10 mg PO QDAY #30 tablet 10/15/14 02/12/16 Unknown Rx lisinopriL [Zestril TAB] 40 mg PO QDAY #30 tablet 10/15/14 02/12/16 Unknown Rx Aspirin 325 mg PO QDAY #30 tablet 02/12/16 Unknown Rx AtorvaSTATin [Lipitor] 40 mg PO QHS #30 tablet 02/12/16 Unknown Rx Clopidogrel [Plavix] 75 mg PO QDAY #30 tablet 02/12/16 Unknown Rx Furosemide [Lasix TAB] 40 mg PO QDAY #30 tablet 02/12/16 Unknown Rx ISOSORBIDE MONOnitrate [Imdur ER] 30 mg PO QDAY #30 tablet 02/12/16 Unknown Rx Insulin Glargine [Lantus VIAL] 20 units SUB-Q QHS #30 units 02/12/16 Unknown Rx Metoprolol [Lopressor TAB] 100 mg PO BID #60 tablet 02/12/16 Unknown Rx amLODIPine 5 mg PO QDAY #30 tablet 02/12/16 Unknown Rx lisinopriL [Zestril TAB] 40 mg PO DAILY #30 tablet 02/12/16 Unknown Rx metFORMIN [Glucophage] 1,000 mg PO BIDDIAB #120 tablet 02/12/16 Unknown Rx Gabapentin 300 mg PO BID #14 cap 07/23/18 Unknown Rx Carisoprodol [Soma] 350 mg PO Q8H PRN #30 tablet 03/26/21 Unknown Rx Naproxen 500 mg PO Q12H PRN #30 tablet 03/26/21 Unknown Rx traMADoL [Ultram] 50 mg PO Q6HR PRN #12 tablet 03/26/21 Unknown Rx Active Meds: Active Medications Acetaminophen (Acetaminophen 325 Mg Tab) 650 mg PO Q4H PRN PRN Reason: Pain MILD(1-3)/Fever >100.5/[place] Amlodipine Besylate (Amlodipine 5 Mg Tab) 5 mg PO QDAY [facility] Aspirin (Aspirin 325 Mg Tab) 325 mg PO QDAY [facility] Atorvastatin Calcium (Atorvastatin 40 Mg Tab) 40 mg PO QHS [facility] Bisacodyl (Bisacodyl 10 Mg Rect Supp) 10 mg VA QDAY PRN PRN Reason: Constipation Clopidogrel Bisulfate (Clopidogrel 75 Mg Tab) 75 mg PO QDAY [facility] Dextrose (Dextrose 50% In Water (25gm) 50 Ml Syringe) 50 ml IV Q30MIN PRN; Protocol PRN Reason: Hypoglycemia Gabapentin (Gabapentin 300 Mg Cap) 300 mg PO BID [facility] Heparin Sodium (Porcine) (Heparin 5,000 Unit/1 Ml Vial) 5,000 unit SUB-Q Q8HR [facility] Last Admin: 07/20/21 07:00 Dose: 5,000 unit Documented by: Hydralazine HCl (Hydralazine 20 Mg/1 Ml Inj) 10 mg IV Q4HR PRN PRN Reason: Blood Pressure Insulin Human Lispro (Insulin Lispro 100 Unit/Ml) 0 unit SUB-Q [facility]; Protocol Last Admin: 07/20/21 07:51 Dose: Not Given Documented by: Lisinopril (Lisinopril 40 Mg Tab) 40 mg PO QDAY [facility] Magnesium Hydroxide (Magnesium Hydroxide (Mom) Oral Liqd Udc) 30 ml PO Q4H PRN PRN Reason: Constipation Metformin HCl (Metformin 500 Mg Tab) 1,000 mg PO BIDDIAB [facility] Metoclopramide HCl (Metoclopramide 10 Mg Tab) 10 mg PO Q6H PRN PRN Reason: Nausea And Vomiting Morphine Sulfate (Morphine 2 Mg/1 Ml Inj) 2 mg IV Q4H PRN PRN Reason: Pain, Moderate (4-6) Morphine Sulfate (Morphine 4 Mg/1 Ml Inj) 4 mg IV Q4H PRN PRN Reason: Pain , Severe (7-10) Ondansetron HCl (Ondansetron 4 Mg/2 Ml Inj) 4 mg IV Q8H PRN PRN Reason: Nausea And Vomiting Promethazine HCl (Promethazine 25 Mg Rect Supp) 25 mg VA Q6H PRN PRN Reason: Nausea And Vomiting Sodium Chloride (Sodium Chloride 0.9% 10 Ml Flush Syringe) 10 ml IV BID [place] Sodium Chloride (Sodium Chloride 0.9% 10 Ml Flush Syringe) 10 ml IV PRN PRN PRN Reason: LINE FLUSH Review of Systems All systems: negative (as per HPI;) Physical Examination - Vital Signs Vital Signs: Vital Signs Temp BP 98.7 F 220/96 07/19/21 19:42 07/19/21 19:42 - Physical Exam Narrative exam: Gen: nad, well-nourished; Head: normocephalic; Eyes: no gaze deviation; no ptosis; ENT: normal vocalization; CVS: warm and well-perfused; Pulm: no respiratory distress; GI: appears non-distended, protuberant; Ext: no cyanosis at distal extremities; Skin: no acute rash at distal extremities; Heme: no pathologic bruising at distal extremities; Neuro: alert, mute, follows commands; mild difficulty with complex commands; CN 2 - PERRL, visual blackmon grossly intact, CN 3, 4, 6 - EOMI, CN 5 - facial sens ation symmetric to light touch, CN 7 - facial movement symmetric, CN 8 - hearing grossly intact, CN 9, 10 - uvula midline, CN 11 - shrug symmetric, CN 12 - tongue midline; Motor - at least 4-/5 in all exts with mild drift at RUE/RLE; Sensory - light touch decreased at LUE/LLE, Cerebellar - fnf /hts intact except difficulty with RLE due to weakness, Gait - deferred secondary to fall risk; NIHSS (1a.) Level of Consciousness:0 (1b.) LOC Questions:2 (1c.) LOC Commands:0 (2.) Best Gaze:0 (3.) Visual:0 (4.) Facial Palsy:0 (5a.) Motor Arm, Left:0 (5b.) Motor Arm, Right:1 (6a.) Motor Leg, Left:0 (6b.) Motor Leg, Right:1 (7.) Limb Ataxia:0 (8.) Sensory:1 (9.) Best Language:3 (10.) Dysarthria:2 (11.) Extinction and Inattention:0 NIHSS Total Score: 10 Results - Laboratory Findings CBC and BMP: 07/20/21 04:38 07/20/21 04:38 Abnormal Lab Findings: Abnormal Labs 07/19/21 07/20/21 07/20/21 20:11 04:38 04:38 RBC 5.36 H 5.28 H Hgb 16.2 H 16.0 H Hct 47.8 H 46.8 H Towns % (Auto) 7.7 H Seg Neutrophils % 75.0 H Glucose 116 H Cholesterol 208 H LDL Cholesterol Direct 164 H Assessment and Plan 56 yo male with htn, dm, chf, cva with left-sided symptoms, who presents with acute onset of muteness on 07/17/21. Limited history secondary to muteness. Deneis throat pain or sore throat. 1. Acute Ischemic Stroke - aspirin 325 mg po qday; statin therapy for a goal ldl of 70; mri brain w/ wo contrast; tte; cta head/neck w/ wo contrast; st evaluaiton/monitoring; pt/ot evaluation; confirm ldl, tsh. 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 4. Right hemiparesis - pt/ot evaluation/monitoring. 5. Muteness - st evaluation/monitoring. Miguel Hamilton MD Neurology [id number]
--- NOTE | 2021-07-20 11:33 | Magnetic Resonance Report ---
MRI BRAIN 07/20/2021 INDICATION / CLINICAL INFORMATION: stroke, SLURRED SPEECH, RTSIDED WEAKNESS. TECHNIQUE: Multiplanar, multisequence MR images of the brain were obtained. COMPARISON: CT brain 07/19/2021 FINDINGS: BRAIN / INTRACRANIAL CONTENTS: Unenhanced MR images of the brain were obtained. There is extensive chronic white matter T2 weighted signal change in the periventricular and deep whi te matter of cerebral hemispheres. This pattern can be seen in extensive chronic small vessel ischemi c change, but would also be compatible with long-standing demyelination/multiple sclerosis. There is a 9 mm focus of restricted diffusion in the left centrum semiovale, consistent with acute umanzor bcortical ischemic injury. There is no evidence of acute hemorrhage. There is no evidence of mass. There are no abnormal extra-a xial fluid collections. Ventricles and sulci are within normal limits of size and shape for a patient of this age. EXTRACRANIAL: Unremarkable CRANIOCERVICAL JUNCTION: No significant abnormality. VASCULAR FLOW-VOIDS: No significant abnormality. IMPRESSION: Extensive chronic appearing white matter abnormality, with superimposed focal area of acute ischemic injury and left centrum semiovale. Signer Name: Chester Mejia MD Signed: 07/20/2021 11:29 AM Workstation Name: [id number]
--- NOTE | 2021-07-20 11:47 | Vascular Lab Report ---
DUPLEX DOPPLER ULTRASOUND CAROTID, BILATERAL INDICATION / CLINICAL INFORMATION: stroke. COMPARISON: None available. FINDINGS: RIGHT CAROTID: - PLAQUE ESTIMATE (%): < 50% - CCA velocity: 112 cm/sec. - ICA peak systolic velocity: 74 cm/sec. - ICA/CCA PSV Ratio: Less than 2 Right Vertebral Artery: Antegrade flow. LEFT CAROTID: - PLAQUE ESTIMATE (%): < 50% - CCA velocity: 115 cm/sec. - ICA peak systolic velocity: 107 cm/sec. - ICA/CCA PSV Ratio: Less than 2 Left Vertebral Artery: Antegrade flow. IMPRESSION: 1. Right Internal Carotid Artery: Less than 50% diameter stenosis. 2. Left Internal Carotid Artery: Less than 50% diameter stenosis. Velocity criteria are extrapolated from diameter data as defined by the Society of Radiologists in Ul trasound Consensus Conference, Radiology 2003; 229;340-346. NO STENOSIS (NORMAL) - Plaque = none; ICA PSV < 125 cm/sec; ICA/CCA PSV Ratio < 2.0 <50% STENOSIS - Plaque < 50%; ICA PSV < 125 cm/sec; ICA/CCA PSV Ratio < 2.0 50-69% STENOSIS - Plaque > 50%; ICA PSV = 125-230 cm/sec; ICA/CCA PSV Ratio = 2.0-4.0 >70% BUT <100% STENOSIS - Plaque > 50%; ICA PSV > 230 cm/sec; ICA/CCA PSV Ratio > 4.0 NEAR OCCLUSION - Plaque = visible lumen; ICA PSV = high/low/none; ICA/CCA PSV Ratio = variable TOTAL OCCLUSION - Plaque = no lumen; ICA PSV = none; ICA/CCA PSV Ratio = N/A Signer Name: Phil Ramos MD Signed: 07/20/2021 11:42 AM Workstation Name: [email or web address]
[2021-07-20] MEDS: GABAPENTIN 300 MG CAP PO SCH ×2 (12:40→22:09)
[2021-07-20] MEDS: metFORMIN 500 MG TAB PO SCH ×2 (12:40→16:01)
[2021-07-20] MEDS: LISINOPRIL 40 MG TAB PO SCH (12:40)
[2021-07-20] MEDS: CLOPIDOGREL 75 MG TAB PO SCH (12:40)
[2021-07-20] MEDS: ASPIRIN 325 MG TAB PO SCH (12:41)
--- NOTE | 2021-07-20 15:10 | Progress Note ---
Assessment and Plan (1) Acute CVA (cerebrovascular accident) Current Visit: Yes Status: Acute Plan to address problem: Patient admitted and placed on telemetry. We will commence patient on daily aspirin and statin. Patient will be scheduled for carotid Doppler, echocardiogram and MRI of the brain. Consult placed to neurologist for evaluation. (2) Accelerated hypertension Onset Date: 02/09/16 Current Visit: No Status: Acute Plan to address problem: We will allow patient for permissive hypertension in view of possible CVA. However we will monitor vital signs closely place patient on IV hydralazine as needed. (3) History of coronary artery disease Onset Date: 02/09/16 Current Visit: No Status: Acute Plan to address problem: We will continue routine home medications once reconciled. (4) Hyperlipidemia Current Visit: No Status: Acute Plan to address problem: Patient will be resumed on statin and will monitor lipid profile. (5) Diabetes Onset Date: 02/09/16 Current Visit: No Status: Chronic Plan to address problem: Patient placed on sliding scale insulin and Will monitor Accu-Cheks closely. (6) DVT prophylaxis Onset Date: 02/09/16 Current Visit: No Status: Acute Plan to address problem: Patient placed on subcutaneous heparin. Daily clinical course: 07/20/21: MRI of the brain suggestive for acute stroke, patient noted to be aphasic. Will await for PT and speech eval. Wait for 2D echo and carotid Doppler result. Follow neurology recommendation. Subjective Date of service: 07/20/21 Objective - Constitutional Vitals: Vital Signs - 12hr 07/20/21 07/20/21 07/20/21 03:16 03:30 03:46 Pulse Rate 68 65 65 Respiratory 15 16 15 Rate Blood Pressure 172/86 204/100 204/100 O2 Sat by Pulse 96 97 97 Oximetry 07/20/21 07/20/21 07/20/21 04:00 04:16 04:30 Pulse Rate 68 66 60 Respiratory 15 12 15 Rate Blood Pressure 187/91 187/91 174/85 O2 Sat by Pulse 97 96 98 Oximetry 07/20/21 07/20/21 07/20/21 04:46 05:00 05:16 Pulse Rate 82 85 70 Respiratory 15 19 14 Rate Blood Pressure 174/85 169/92 169/92 O2 Sat by Pulse 97 95 96 Oximetry 07/20/21 07/20/21 07/20/21 05:30 05:46 06:00 Pulse Rate 71 64 60 Respiratory 19 18 16 Rate Blood Pressure 178/84 178/84 177/87 O2 Sat by Pulse 97 97 94 Oximetry 07/20/21 07/20/21 07/20/21 06:16 06:30 06:46 Pulse Rate 64 56 L 68 Respiratory 16 15 11 L Rate Blood Pressure 177/87 175/92 175/92 O2 Sat by Pulse 97 97 97 Oximetry - Labs CBC & Chem 7: 07/20/21 04:38 07/20/21 04:38 Labs: Abnormal lab results 07/19/21 07/20/21 07/20/21 Range/Units 20:11 04:38 04:38 RBC 5.36 H 5.28 H (3.65-5.03) M/mm3 Hgb 16.2 H 16.0 H (11.8-15.2) gm/dl Hct 47.8 H 46.8 H (35.5-45.6) % [place]y % (Auto) 7.7 H (0.0-7.3) % Seg Neutrophils % 75.0 H (40.0-70.0) % Glucose 116 H (75-100) mg/dL Cholesterol 208 H (50-199) mg/dL LDL Cholesterol Direct 164 H (50-130) mg/dL HEART Score - HEART Score Troponin: Troponin T < 0.010 ng/mL (0.00-0.029) 07/19/21 20:11
[2021-07-20] MEDS: hydrALAZINE 25 MG TAB PO SCH ×2 (16:02→22:08)
[2021-07-21] MEDS: HEPARIN 5,000 UNIT/1 ML VIAL SUB-Q SCH ×2 (05:36→12:21)
[2021-07-21] MEDS: hydrALAZINE 25 MG TAB PO SCH (05:37)
[2021-07-21] MEDS: metFORMIN 500 MG TAB PO SCH ×2 (08:55→18:21)
[2021-07-21] MEDS: INSULIN LISPRO 100 UNIT/ML SUB-Q SCH ×2 (08:55→18:20)
[2021-07-21] MEDS ORDERED: hydrALAZINE 25 MG TAB PO SCH (11:36)
[2021-07-21] MEDS: GABAPENTIN 300 MG CAP PO SCH (12:20)
[2021-07-21] MEDS: CLOPIDOGREL 75 MG TAB PO SCH (12:20)
[2021-07-21] MEDS: amLODIPine 10 MG TAB PO SCH (12:20)
[2021-07-21] MEDS: LISINOPRIL 40 MG TAB PO SCH (12:20)
[2021-07-21] MEDS: ASPIRIN 325 MG TAB PO SCH (12:20)
--- NOTE | 2021-07-21 16:10 | Magnetic Resonance Report ---
MR brain w con INDICATION / CLINICAL INFORMATION: 56 years Male; Neoplasm pt presenting with muteness. TECHNIQUE: Multiplanar, multisequence MR images of the brain were obtained. COMPARISON: The study is compared to the previous noncontrast MRI of 07/19/2021. FINDINGS: BRAIN / INTRACRANIAL CONTENTS: On the earlier noncontrast study, there was note of an acute to infarc t involving left jovel radiata. There were notable white matter findings, particularly involving the periventricular regions. There are old lacunar infarct was seen along the head of the left caudate a nd within the deep cerebral white matter. However, the additional postcontrast imaging reveals no rafi dence of corresponding intracranial enhancing lesions. ADDITIONAL FINDINGS: None. IMPRESSION: 1. Additional postcontrast imaging reveals continued extensive cerebral white matter disease as descr ibed without evidence of corresponding enhancement. Signer Name: Rayo Everett MD Signed: 07/21/2021 4:06 PM Workstation Name: [id number]
--- NOTE | 2021-07-21 16:35 | Progress Note ---
Assessment and Plan (1) Acute CVA (cerebrovascular accident) Current Visit: Yes Status: Acute Plan to address problem: Patient admitted and placed on telemetry. We will commence patient on daily aspirin and statin. Patient will be scheduled for carotid Doppler, echocardiogram and MRI of the brain. Consult placed to neurologist for evaluation. (2) Accelerated hypertension Onset Date: 02/09/16 Current Visit: No Status: Acute Plan to address problem: We will allow patient for permissive hypertension in view of possible CVA. However we will monitor vital signs closely place patient on IV hydralazine as needed. (3) History of coronary artery disease Onset Date: 02/09/16 Current Visit: No Status: Acute Plan to address problem: We will continue routine home medications once reconciled. (4) Hyperlipidemia Current Visit: No Status: Acute Plan to address problem: Patient will be resumed on statin and will monitor lipid profile. (5) Diabetes Onset Date: 02/09/16 Current Visit: No Status: Chronic Plan to address problem: Patient placed on sliding scale insulin and Will monitor Accu-Cheks closely. (6) DVT prophylaxis Onset Date: 02/09/16 Current Visit: No Status: Acute Plan to address problem: Patient placed on subcutaneous heparin. Daily clinical course: 07/20/21: MRI of the brain suggestive for acute stroke, patient noted to be aphasic. Will await for PT and speech eval. Wait for 2D echo and carotid Doppler result. Follow neurology recommendation. 07/21/21: Speech therapy recommended pured diet with thin liquid. Patient has right upper extremity weakness and patient is aphasic. Neurology recommended MRI brain with contrast to rule out any underlying malignancy. 2D echo showed preserved EF. Continue to follow clinically. PT recommended acute rehab. Subjective Date of service: 07/21/21 Objective - Constitutional Vitals: Vital Signs - 12hr 07/21/21 07/21/21 07/21/21 07:31 09:00 12:07 Temperature 98.0 F 98.3 F Pulse Rate 61 61 96 H Respiratory 20 20 Rate Blood Pressure 172/86 186/96 O2 Sat by Pulse 96 98 Oximetry 07/21/21 07/21/21 13:03 15:42 Temperature 97.3 F L Pulse Rate 75 Respiratory 20 Rate Blood Pressure 186/94 O2 Sat by Pulse 97 97 Oximetry - Labs CBC & Chem 7: 07/20/21 04:38 07/20/21 04:38 HEART Score - HEART Score Troponin: Troponin T < 0.010 ng/mL (0.00-0.029) 07/19/21 20:11
[2021-07-21] MEDS ORDERED: D5W/0.9% NACL 1,000 ML IV SCH (17:00)
[2021-07-21] MEDS: hydrALAZINE 100 MG TAB PO SCH (18:22)
[2021-07-21] MEDS: hydrALAZINE 20 MG/1 ML INJ IV PRN (20:34)
[2021-07-22] MEDS: hydrALAZINE 100 MG TAB PO SCH ×4 (03:54→22:58)
[2021-07-22] MEDS: GABAPENTIN 300 MG CAP PO SCH ×3 (03:54→22:59)
[2021-07-22] MEDS: INSULIN LISPRO 100 UNIT/ML SUB-Q SCH ×5 (03:55→23:00)
[2021-07-22] MEDS: HEPARIN 5,000 UNIT/1 ML VIAL SUB-Q SCH ×4 (03:55→22:59)
[2021-07-22] MEDS: metFORMIN 500 MG TAB PO SCH ×2 (08:47→16:19)
[2021-07-22] MEDS: LISINOPRIL 40 MG TAB PO SCH (11:37)
[2021-07-22] MEDS: amLODIPine 10 MG TAB PO SCH (11:37)
[2021-07-22] MEDS: ASPIRIN 325 MG TAB PO SCH (11:37)
[2021-07-22] MEDS: CLOPIDOGREL 75 MG TAB PO SCH (11:37)
--- NOTE | 2021-07-22 14:18 | Discharge Summary ---
Providers - Providers Date of Admission: 07/19/21 21:58 Date of discharge: 07/22/21 Attending physician: GRAYSON PENDLETON 07/19/21 22:35 Consult to Physician [CONS] Routine Comment: Consulting Provider: LAURO HESS Physician Instructions: Reason For Exam: CVA 07/19/21 22:36 Consult to Dietitian/Nutrition [CONS] Routine Physician Instructions: Reason For Exam: Reason for Consult: Diet education Occupational Therapy Evaluate and Treat [CONS] Routine Comment: Reason For Exam: Neuro deficits Physical Therapy Evaluation and Treat [CONS] Routine Comment: Reason For Exam: Neuro deficits 07/20/21 17:53 Speech Therapy Evaluation and Treat [CONS] Routine Reason For Exam: coughing with food Primary care physician: WATER PROJECT MANAGER Hospitalization Condition: Stable Disposition: HOME HEALTH CARE SERVICE Final Discharge Diagnosis (Prints w/discharge instructions): Acute subcortical ischemic CVA (acute ischemic injury at the left centrum semiovale). Hypertension. History of prior CVA with left-sided weakness. History of coronary artery disease. Diabetes mellitus type 2. Hyperlipidemia Time spent for discharge: 34 minutes Core Measure Documentation - Palliative Care Palliative Care/ Comfort Measures: Not Applicable - Core Measures Any of the following diagnoses?: stroke - Stroke Discharge Requirements Statin for LDL = or >70 mg/dl on DC: Yes Anticoag for atrial fib/atrial flutter: Not Applicable Antithrombotic for ischemic stroke: Yes Exam - Constitutional Vitals: Temp Pulse Resp BP Pulse Ox 98.3 F 77 20 198/89 98 07/22/21 11:59 07/22/21 11:59 07/22/21 11:59 07/22/21 11:59 07/22/21 11:59 Plan Activity: advance as tolerated Weight Bearing Status: Weight Bear as Tolerated Diet: low fat, low cholesterol, diabetic Special Instructions: record daily BP diary, record blood sugar diary, physical therapy, occupational therapy Follow up with: PRIMARY CAREMD [Primary Care Provider] - 3-5 Days DON GAYLE MD [Staff Physician] - 7 Days Prescriptions: hydrALAZINE [Apresoline TAB] 100 mg PO Q8HR #90 tab
[2021-07-22] MEDS: hydrALAZINE 20 MG/1 ML INJ IV PRN ×2 (14:25→18:34)
[2021-07-22] MEDS: METOPROLOL TARTRATE 100 MG TAB PO SCH ×2 (16:06→22:59)
--- NOTE | 2021-07-22 19:43 | Event Note ---
Date: 07/22/21 Planned to admit patient to IRU today however, he is not currently appropriate for IRU. Patient is refusing to take PO medications and is not eating. A review of the vitals show very elevated BP. Review of the MAR shows he was not taking PO meds on /Sunday. Nursing states he stopped eating. We can still bring him to IRU but we need to make sure he is taking medications and that his BP is controlled in order for him to participate in therapy. Would be good to know why he is refusing to take PO. Feel free to call me on my cell phone to discuss if needed.
[2021-07-22] MEDS ORDERED: METOPROLOL TARTRATE 50 MG TAB PO SCH (22:00)
[2021-07-23] MEDS: hydrALAZINE 20 MG/1 ML INJ IV PRN ×3 (01:37→20:39)
[2021-07-23] MEDS: hydrALAZINE 100 MG TAB PO SCH ×3 (06:49→21:00)
[2021-07-23] MEDS: HEPARIN 5,000 UNIT/1 ML VIAL SUB-Q SCH ×3 (06:50→21:01)
[2021-07-23] MEDS: amLODIPine 10 MG TAB PO SCH (09:30)
[2021-07-23] MEDS: GABAPENTIN 300 MG CAP PO SCH ×2 (09:30→21:00)
[2021-07-23] MEDS: METOPROLOL TARTRATE 100 MG TAB PO SCH ×2 (09:30→21:00)
[2021-07-23] MEDS: ASPIRIN 325 MG TAB PO SCH (09:31)
[2021-07-23] MEDS: CLOPIDOGREL 75 MG TAB PO SCH (09:31)
[2021-07-23] MEDS: INSULIN LISPRO 100 UNIT/ML SUB-Q SCH ×3 (09:31→20:59)
[2021-07-23] MEDS: LISINOPRIL 40 MG TAB PO SCH (09:31)
[2021-07-23] MEDS: metFORMIN 500 MG TAB PO SCH ×2 (09:31→20:59)
[2021-07-23] MEDS: FUROSEMIDE 40 MG TAB PO SCH (09:31)
--- NOTE | 2021-07-23 17:08 | Progress Note ---
Assessment and Plan (1) Acute CVA (cerebrovascular accident) Current Visit: Yes Status: Acute Plan to address problem: Patient admitted and placed on telemetry. We will commence patient on daily aspirin and statin. Patient will be scheduled for carotid Doppler, echocardiogram and MRI of the brain. Consult placed to neurologist for evaluation. (2) Accelerated hypertension Onset Date: 02/09/16 Current Visit: No Status: Acute Plan to address problem: We will allow patient for permissive hypertension in view of possible CVA. However we will monitor vital signs closely place patient on IV hydralazine as needed. (3) History of coronary artery disease Onset Date: 02/09/16 Current Visit: No Status: Acute Plan to address problem: We will continue routine home medications once reconciled. (4) Hyperlipidemia Current Visit: No Status: Acute Plan to address problem: Patient will be resumed on statin and will monitor lipid profile. (5) Diabetes Onset Date: 02/09/16 Current Visit: No Status: Chronic Plan to address problem: Patient placed on sliding scale insulin and Will monitor Accu-Cheks closely. (6) DVT prophylaxis Onset Date: 02/09/16 Current Visit: No Status: Acute Plan to address problem: Patient placed on subcutaneous heparin. Daily clinical course: 07/20/21: MRI of the brain suggestive for acute stroke, patient noted to be aphasic. Will await for PT and speech eval. Wait for 2D echo and carotid Doppler result. Follow neurology recommendation. 07/21/21: Speech therapy recommended pured diet with thin liquid. Patient has right upper extremity weakness and patient is aphasic. Neurology recommended MRI brain with contrast to rule out any underlying malignancy. 2D echo showed preserved EF. Continue to follow clinically. PT recommended acute rehab. 07/22/21; patient was not admitted for acute rehab b/o elevated BP. 07/23/21; discussed with patient that he needs to take medication Subjective Date of service: 07/23/21 Objective - Constitutional Vitals: Vital Signs - 12hr 07/23/21 07/23/21 07/23/21 07:49 10:00 12:12 Temperature 99.1 F 98.7 F Pulse Rate 99 H 89 87 Respiratory 18 18 Rate Blood Pressure 164/93 121/66 O2 Sat by Pulse 95 98 95 Oximetry 07/23/21 16:37 Temperature 99.0 F Pulse Rate 92 H Respiratory 18 Rate Blood Pressure 186/82 O2 Sat by Pulse 96 Oximetry - Labs CBC & Chem 7: 07/20/21 04:38 07/20/21 04:38 Labs: Abnormal lab results 07/23/21 Range/Units 07:33 POC Glucose 106 H (70-105) mg/dL HEART Score - HEART Score Troponin: Troponin T < 0.010 ng/mL (0.00-0.029) 07/19/21 20:11
[2021-07-24] MEDS: HEPARIN 5,000 UNIT/1 ML VIAL SUB-Q SCH ×3 (06:03→21:27)
[2021-07-24] MEDS: hydrALAZINE 20 MG/1 ML INJ IV PRN ×2 (06:03→21:29)
[2021-07-24] MEDS: hydrALAZINE 100 MG TAB PO SCH ×3 (06:04→21:27)
[2021-07-24] MEDS: INSULIN LISPRO 100 UNIT/ML SUB-Q SCH ×4 (07:40→21:27)
[2021-07-24] MEDS: metFORMIN 500 MG TAB PO SCH ×2 (07:41→17:54)
[2021-07-24] MEDS: amLODIPine 10 MG TAB PO SCH (09:39)
[2021-07-24] MEDS: LISINOPRIL 40 MG TAB PO SCH (09:40)
[2021-07-24] MEDS: FUROSEMIDE 40 MG TAB PO SCH (09:40)
[2021-07-24] MEDS: ASPIRIN 325 MG TAB PO SCH (09:40)
[2021-07-24] MEDS: GABAPENTIN 300 MG CAP PO SCH ×2 (09:40→21:27)
[2021-07-24] MEDS: CLOPIDOGREL 75 MG TAB PO SCH (09:40)
[2021-07-24] MEDS: METOPROLOL TARTRATE 100 MG TAB PO SCH ×2 (09:40→21:28)
[2021-07-24] MEDS ORDERED: cloNIDine TTS 0.2 MG/24 HR PATCH TD SCH (15:30)
--- NOTE | 2021-07-24 15:52 | Progress Note ---
Assessment and Plan (1) Acute CVA (cerebrovascular accident) Current Visit: Yes Status: Acute Plan to address problem: Patient admitted and placed on telemetry. We will commence patient on daily aspirin and statin. Patient will be scheduled for carotid Doppler, echocardiogram and MRI of the brain. Consult placed to neurologist for evaluation. (2) Accelerated hypertension Onset Date: 02/09/16 Current Visit: No Status: Acute Plan to address problem: We will allow patient for permissive hypertension in view of possible CVA. However we will monitor vital signs closely place patient on IV hydralazine as needed. (3) History of coronary artery disease Onset Date: 02/09/16 Current Visit: No Status: Acute Plan to address problem: We will continue routine home medications once reconciled. (4) Hyperlipidemia Current Visit: No Status: Acute Plan to address problem: Patient will be resumed on statin and will monitor lipid profile. (5) Diabetes Onset Date: 02/09/16 Current Visit: No Status: Chronic Plan to address problem: Patient placed on sliding scale insulin and Will monitor Accu-Cheks closely. (6) DVT prophylaxis Onset Date: 02/09/16 Current Visit: No Status: Acute Plan to address problem: Patient placed on subcutaneous heparin. Daily clinical course: 07/20/21: MRI of the brain suggestive for acute stroke, patient noted to be aphasic. Will await for PT and speech eval. Wait for 2D echo and carotid Doppler result. Follow neurology recommendation. 07/21/21: Speech therapy recommended pured diet with thin liquid. Patient has right upper extremity weakness and patient is aphasic. Neurology recommended MRI brain with contrast to rule out any underlying malignancy. 2D echo showed preserved EF. Continue to follow clinically. PT recommended acute rehab. 07/22/21; patient was not admitted for acute rehab b/o elevated BP. 07/23/21; discussed with patient that he needs to take medication Subjective Date of service: 07/24/21 Objective - Constitutional Vitals: Vital Signs - 12hr 07/24/21 07/24/21 07/24/21 06:03 07:45 10:00 Temperature 98.2 F Pulse Rate 110 H 110 H Respiratory 18 Rate Blood Pressure 186/80 130/67 O2 Sat by Pulse 92 96 Oximetry 07/24/21 07/24/21 11:23 15:48 Temperature 98.0 F Pulse Rate 94 H 94 H Respiratory 18 Rate Blood Pressure 159/66 159/66 O2 Sat by Pulse 95 Oximetry - Labs CBC & Chem 7: 07/20/21 04:38 07/20/21 04:38 Labs: Abnormal lab results 07/24/21 Range/Units 07:05 POC Glucose 125 H (70-105) mg/dL HEART Score - HEART Score Troponin: Troponin T < 0.010 ng/mL (0.00-0.029) 07/19/21 20:11
[2021-07-24] MEDS ORDERED: D5W/0.9% NACL 1,000 ML IV SCH (17:00)
[2021-07-25] MEDS: hydrALAZINE 100 MG TAB PO SCH ×2 (05:03→15:52)
[2021-07-25] MEDS: HEPARIN 5,000 UNIT/1 ML VIAL SUB-Q SCH ×2 (05:03→16:58)
[2021-07-25] MEDS: metFORMIN 500 MG TAB PO SCH (08:33)
[2021-07-25] MEDS: INSULIN LISPRO 100 UNIT/ML SUB-Q SCH ×2 (08:33→16:58)
--- NOTE | 2021-07-25 09:28 | Consultation ---
History of Present Illness Consult date: 07/25/21 Reason for Consult: right side weakness 07/19 History of present illness: Left Sided weakness History of present illness: 56-year old -[place] male with known history of hypertension and CVA about 10 years ago presents to the emergency room room today complaining of inability to speak which has been ongoing for the past 3 days. Patient has also been having right upper and and to a lesser extent lower extremity weakness with significant right facial droop. He is with difficulty swallowing. Indicates he has been having some mild headache but no dizziness and no diaphoresis. Patient denies any chest pain or shortness of breath, no nausea vomiting, no abdominal pain. Patient had no residual deficit during the CVA about 10 years ago. hx is difficult to obtains due to pt. aphasia Upon arrival in the emergency room blood pressure was quite elevated with systolic in the 200s and diastolic in the low 100s. Patient had a dose of IV hydralazine. Work-up in the emergency room today, chest x-ray and CT scan of the head were unremarkable. mRI brain done with and without gd is remarkable for small vesseles disease and left jovel radiata infarct Acute. echo is # EF 50-55% . Past History Past Medical History: acute [place], CAD, diabetes, heart failure, hypertension Past Surgical History: PTCA Social history: no significant social history Family history: no significant family history Medications and Allergies Allergies Allergy/AdvReac Type Severity Reaction Status Date / Time shellfish derived Allergy swelling Verified 07/19/21 19:42 and vomiting Home Medications Medication Instructions Recorded Confirmed Last Taken Type Aspirin [Aspirin BABY CHEW TAB] 81 mg PO QDAY #30 tab.chew 10/15/14 02/12/16 Unknown Rx amLODIPine 10 mg PO QDAY #30 tablet 10/15/14 02/12/16 Unknown Rx lisinopriL [Zestril TAB] 40 mg PO QDAY #30 tablet 10/15/14 02/12/16 Unknown Rx Aspirin 325 mg PO QDAY #30 tablet 02/12/16 Unknown Rx AtorvaSTATin [Lipitor] 40 mg PO QHS #30 tablet 02/12/16 Unknown Rx Clopidogrel [Plavix] 75 mg PO QDAY #30 tablet 02/12/16 Unknown Rx Furosemide [Lasix TAB] 40 mg PO QDAY #30 tablet 02/12/16 Unknown Rx ISOSORBIDE MONOnitrate [Imdur ER] 30 mg PO QDAY #30 tablet 02/12/16 Unknown Rx Insulin Glargine [Lantus VIAL] 20 units SUB-Q QHS #30 units 02/12/16 Unknown Rx Metoprolol [Lopressor TAB] 100 mg PO BID #60 tablet 02/12/16 Unknown Rx amLODIPine 5 mg PO QDAY #30 tablet 02/12/16 Unknown Rx lisinopriL [Zestril TAB] 40 mg PO DAILY #30 tablet 02/12/16 Unknown Rx metFORMIN [Glucophage] 1,000 mg PO BIDDIAB #120 tablet 02/12/16 Unknown Rx Gabapentin 300 mg PO BID #14 cap 07/23/18 Unknown Rx Carisoprodol [Soma] 350 mg PO Q8H PRN #30 tablet 03/26/21 Unknown Rx Naproxen 500 mg PO Q12H PRN #30 tablet 03/26/21 Unknown Rx traMADoL [Ultram] 50 mg PO Q6HR PRN #12 tablet 03/26/21 Unknown Rx Active Meds: Active Medications Acetaminophen (Acetaminophen 325 Mg Tab) 650 mg PO Q4H PRN PRN Reason: Pain MILD(1-3)/Fever >100.5/CASANOVA Aspirin (Aspirin 325 Mg Tab) 325 mg PO QDAY [facility] Atorvastatin Calcium (Atorvastatin 40 Mg Tab) 40 mg PO QHS [facility] Bisacodyl (Bisacodyl 10 Mg Rect Supp) 10 mg OR QDAY PRN PRN Reason: Constipation Dextrose (Dextrose 50% In Water (25gm) 50 Ml Syringe) 50 ml IV Q30MIN PRN; Protocol PRN Reason: Hypoglycemia Dextrose (Dextrose 50% In Water (25gm) 50 Ml Syringe) 50 ml IV Q30MIN PRN; Protocol PRN Reason: Hypoglycemia Heparin Sodium (Porcine) (Heparin 5,000 Unit/1 Ml Vial) 5,000 unit SUB-Q Q8HR [facility] Hydralazine HCl (Hydralazine 20 Mg/1 Ml Inj) 10 mg IV Q4HR PRN PRN Reason: Blood Pressure Insulin Human Lispro (Insulin Lispro 100 Unit/Ml) 0 unit SUB-Q ACHS [facility]; Protocol Magnesium Hydroxide (Magnesium Hydroxide (Mom) Oral Liqd Udc) 30 ml PO Q4H PRN PRN Reason: Constipation Magnesium Hydroxide (Magnesium Hydroxide (Mom) Oral Liqd Udc) 30 ml PO Q4H PRN PRN Reason: Constipation Metoclopramide HCl (Metoclopramide 10 Mg Tab) 10 mg PO Q6H PRN PRN Reason: Nausea And Vomiting Morphine Sulfate (Morphine 2 Mg/1 Ml Inj) 2 mg IV Q4H PRN PRN Reason: Pain, Moderate (4-6) Morphine Sulfate (Morphine 4 Mg/1 Ml Inj) 4 mg IV Q4H PRN PRN Reason: Pain , Severe (7-10) Ondansetron HCl (Ondansetron 4 Mg/2 Ml Inj) 4 mg IV Q8H PRN PRN Reason: Nausea And Vomiting Ondansetron HCl (Ondansetron 4 Mg/2 Ml Inj) 4 mg IV Q8H PRN PRN Reason: Nausea And Vomiting Promethazine HCl (Promethazine 25 Mg Rect Supp) 25 mg OR Q6H PRN PRN Reason: Nausea And Vomiting Sodium Chloride (Sodium Chloride 0.9% 10 Ml Flush Syringe) 10 ml IV BID [facility] Sodium Chloride (Sodium Chloride 0.9% 10 Ml Flush Syringe) 10 ml IV PRN PRN PRN Reason: LINE FLUSH Sodium Chloride (Sodium Chloride 0.9% 10 Ml Flush Syringe) 10 ml INJ PRN PRN PRN Reason: LINE FLUSH Review of Systems Constitutional: no fever, no chills Ears, nose, mouth and throat: no nasal congestion, no sore throat Cardiovascular: no chest pain, no orthopnea, no palpitations Respiratory: no cough, no shortness of breath Gastrointestinal: no abdominal pain, no nausea, no vomiting, no diarrhea Genitourinary Male: no dysuria, no hematuria, no flank pain Musculoskeletal: no neck pain, no low back pain Integumentary: no rash, no pruritis Neurological: aphasia, paralysis (Left upper and lower extremity weakness.), no headaches, no confusion Psychiatric: no anxiety, no depression, no confusion Endocrine: no polyphagia, no polydipsia, no polyuria, no nocturia Past History Past Medical History: acute [place], CAD, diabetes, heart failure, hypertension Past Surgical History: PTCA Social history: no significant social history Family history: no significant family history Medications and Allergies Allergies Allergy/AdvReac Type Severity Reaction Status Date / Time shellfish derived Allergy swelling Verified 07/19/21 19:42 and vomiting Home Medications Medication Instructions Recorded Confirmed Last Taken Type Aspirin [Aspirin BABY CHEW TAB] 81 mg PO QDAY #30 tab.chew 10/15/14 07/20/21 07/17/21 Rx amLODIPine 10 mg PO QDAY #30 tablet 10/15/14 07/20/21 07/17/21 Rx lisinopriL [Zestril TAB] 40 mg PO QDAY #30 tablet 10/15/14 07/20/21 07/17/21 Rx AtorvaSTATin [Lipitor] 40 mg PO QHS #30 tablet 02/12/16 07/20/21 07/17/21 Rx Clopidogrel [Plavix] 75 mg PO QDAY #30 tablet 02/12/16 07/20/21 07/17/21 Rx Furosemide [Lasix TAB] 40 mg PO QDAY #30 tablet 02/12/16 07/20/21 07/17/21 Rx Metoprolol [Lopressor TAB] 100 mg PO BID #60 tablet 02/12/16 07/20/21 07/17/21 Rx lisinopriL [Zestril TAB] 40 mg PO DAILY #30 tablet 02/12/16 07/20/21 07/17/21 Rx Gabapentin 300 mg PO BID #14 cap 07/23/18 07/20/21 07/17/21 Rx Carisoprodol [Soma] 350 mg PO Q8H PRN #30 tablet 03/26/21 07/20/21 07/17/21 Rx traMADoL [Ultram 50 MG tab] 50 mg PO Q6HR PRN #12 tablet 03/26/21 07/20/21 07/17/21 Rx hydrALAZINE [Apresoline TAB] 100 mg PO Q8HR #90 tab 07/22/21 Unknown Rx metFORMIN [Glucophage] 500 mg PO BIDDIAB #120 tablet 07/22/21 07/20/21 07/17/21 Rx Active Meds: Active Medications Acetaminophen (Acetaminophen 325 Mg Tab) 650 mg PO Q4H PRN PRN Reason: Pain MILD(1-3)/Fever >100.5/[place] Amlodipine Besylate (Amlodipine 10 Mg Tab) 10 mg PO QDAY [facility] Last Admin: 07/24/21 09:39 Dose: Not Given Documented by: Aspirin (Aspirin 325 Mg Tab) 325 mg PO QDAY [facility] Last Admin: 07/24/21 09:40 Dose: Not Given Documented by: Atorvastatin Calcium (Atorvastatin 40 Mg Tab) 40 mg PO QHS [facility] Last Admin: 07/24/21 21:28 Dose: Not Given Documented by: Bisacodyl (Bisacodyl 10 Mg Rect Supp) 10 mg OR QDAY PRN PRN Reason: Constipation Clonidine HCl (Clonidine Tts 0.2 Mg/24 Hr Patch) 0.2 mg TD QWEEK [facility] Last Admin: 07/24/21 15:48 Dose: 0.2 mg Documented by: Clopidogrel Bisulfate (Clopidogrel 75 Mg Tab) 75 mg PO QDAY [facility] Last Admin: 07/24/21 09:40 Dose: Not Given Documented by: Dextrose (Dextrose 50% In Water (25gm) 50 Ml Syringe) 50 ml IV Q30MIN PRN; Protocol PRN Reason: Hypoglycemia Last Admin: 07/22/21 17:04 Dose: 50 ml Documented by: Furosemide (Furosemide 40 Mg Tab) 40 mg PO QDAY [facility] Last Admin: 07/24/21 09:40 Dose: Not Given Documented by: Gabapentin (Gabapentin 300 Mg Cap) 300 mg PO BID [facility] Last Admin: 07/24/21 21:27 Dose: Not Given Documented by: Heparin Sodium (Porcine) (Heparin 5,000 Unit/1 Ml Vial) 5,000 unit SUB-Q Q8HR [facility] Last Admin: 07/25/21 05:03 Dose: Not Given Documented by: Hydralazine HCl (Hydralazine 20 Mg/1 Ml Inj) 10 mg IV Q4HR PRN PRN Reason: Blood Pressure Last Admin: 07/24/21 21:29 Dose: 10 mg Documented by: Hydralazine HCl (Hydralazine 100 Mg Tab) 100 mg PO Q8HR [facility] Last Admin: 07/25/21 05:03 Dose: Not Given Documented by: Dextrose/Sodium Chloride (D5ns) 1,000 mls @ 42 mls/hr IV DIRECT [facility] Insulin Human Lispro (Insulin Lispro 100 Unit/Ml) 0 unit SUB-Q ACHS [facility]; Protocol Last Admin: 07/25/21 08:33 Dose: Not Given Documented by: Lisinopril (Lisinopril 40 Mg Tab) 40 mg PO QDAY [facility] Last Admin: 07/24/21 09:40 Dose: Not Given Documented by: Magnesium Hydroxide (Magnesium Hydroxide (Mom) Oral Liqd Udc) 30 ml PO Q4H PRN PRN Reason: Constipation Metformin HCl (Metformin 500 Mg Tab) 500 mg PO BIDDIAB [facility] Last Admin: 07/25/21 08:33 Dose: Not Given Documented by: Metoclopramide HCl (Metoclopramide 10 Mg Tab) 10 mg PO Q6H PRN PRN Reason: Nausea And Vomiting Metoprolol Tartrate (Metoprolol Tartrate 100 Mg Tab) 100 mg PO BID [facility] Last Admin: 07/24/21 21:28 Dose: Not Given Documented by: Morphine Sulfate (Morphine 2 Mg/1 Ml Inj) 2 mg IV Q4H PRN PRN Reason: Pain, Moderate (4-6) Morphine Sulfate (Morphine 4 Mg/1 Ml Inj) 4 mg IV Q4H PRN PRN Reason: Pain , Severe (7-10) Ondansetron HCl (Ondansetron 4 Mg/2 Ml Inj) 4 mg IV Q8H PRN PRN Reason: Nausea And Vomiting Promethazine HCl (Promethazine 25 Mg Rect Supp) 25 mg OR Q6H PRN PRN Reason: Nausea And Vomiting Sodium Chloride (Sodium Chloride 0.9% 10 Ml Flush Syringe) 10 ml IV BID [facility] Last Admin: 07/24/21 21:28 Dose: 10 ml Documented by: Sodium Chloride (Sodium Chloride 0.9% 10 Ml Flush Syringe) 10 ml IV PRN PRN PRN Reason: LINE FLUSH Last Admin: 07/24/21 06:06 Dose: 10 ml Documented by: Physical Examination - Vital Signs Vital Signs: Vital Signs Temp BP 98.7 F 220/96 07/19/21 19:42 07/19/21 19:42 - Constitutional General appearance: comfortable - EENT EENT: Present: PERRL, mucous membranes moist - Respiratory Respiratory: Present: chest non-tender, lungs clear, rhonchi - Cardiovascular Cardiovascular: Present: regular rate, normal S1, normal S2 Extremities: Present: no peripheral edema bilatateraly, no clubbing, cyanosis - Gastrointestinal Gastrointestinal: Present: normoactive bowel sounds - Integumentary Integumentary: Present: normal - Neurologic Cranial nerve examination: PERRL, EOMI, other (right facial droop no clear visual field deficit is noted) Speech examination: motor aphasia Sensorimotor examination: intact Detailed motor examination: other (are suppressed) Detailed sensory examination: intact - Level of Consciousness 1a. Level of Consciousness: alert/keenly responsive - LOC Questions 1b. LOC Questions: aphasic - LOC Command 1c. LOC Commands: performs tasks correctly - Best Gaze 2. Best Gaze: normal - Visual 3. Visual: no visual loss - Facial Palsy 4. Facial Palsy: partial paralysis - Motor Arm 5a. Motor Arm Left: no drift 5b. Motor Arm Right: some gravity effort - Motor Leg 6a. Motor Leg Left: no drift 6b. Motor Leg Right: drift - Limb Ataxia 7. Limb Ataxia: absent - Sensory 8. Sensory: normal - Best Language 9. Best Language: severe aphasia - Dysarthria 10. Dysarthria: normal - Extinction and Inattention 11. Extinction/Inattention: no abnormality - Scoring Total Score: 9 Stroke Severity: Moderate Stroke Results - Laboratory Findings CBC and BMP: 07/20/21 04:38 07/20/21 04:38 Abnormal Lab Findings: Abnormal Labs 07/19/21 07/20/21 07/20/21 20:11 04:38 04:38 RBC 5.36 H 5.28 H Hgb 16.2 H 16.0 H Hct 47.8 H 46.8 H [place] % (Auto) 7.7 H Seg Neutrophils % 75.0 H Glucose 116 H POC Glucose Cholesterol 208 H LDL Cholesterol Direct 164 H 07/22/21 07/22/21 07/22/21 07:26 12:00 16:52 RBC Hgb Hct [place] % (Auto) Seg Neutrophils % Glucose POC Glucose 66 L 69 L 57 L Cholesterol LDL Cholesterol Direct 07/23/21 07/24/21 07/24/21 07:33 07:05 21:43 RBC Hgb Hct [place] % (Auto) Seg Neutrophils % Glucose POC Glucose 106 H 125 H 146 H Cholesterol LDL Cholesterol Direct 07/25/21 07:37 RBC Hgb Hct [place] % (Auto) Seg Neutrophils % Glucose POC Glucose 154 H Cholesterol LDL Cholesterol Direct Assessment and Plan Assessment and Plan # Acute CVA (cerebrovascular accident) -pt. preesnted with acute onset right side weakness and expressive aphasia on 07/19 -NIH# 9 today - Ct brain is unremarkable -CTA brain and neck are pending -MRI brain with and WO gd is remarkable for white matter changes and acute left jovel radiata CVA -US carotid is <50% bilateral -Echo showerd Ef#50-55% -LDL#164 -A1C#7 -he is started on ASA 325 and Lipitor 40 mg -Pt/ST evaluate # Accelerated hypertension - monitor vital signs closely place patient on IV hydralazine as needed. -BP maintain<150/80 #History of coronary artery disease -We will continue routine home medications once reconciled. # Hyperlipidemia -Patient will be resumed on statin -and will monitor lipid profile. -LDL#164 -Increase Lipitor to 80 mg daily # Diabetes -Patient placed on sliding scale insulin and Will monitor Accu-Cheks closely. -A1C#7 need better control of DM #Spech difficulty and swallow difficulty -under went speech evaluation and upper Gi scope result still pending # DVT prophylaxis -Patient placed on subcutaneous heparin. will follow as needed
--- NOTE | 2021-07-25 14:03 | Fluoroscopy Report ---
MODIFIED BARIUM SWALLOW INDICATION: aspiration TECHNIQUE: Swallowing was evaluated in the lateral position under direct fluoroscopy. FINDINGS: The patient was evaluated with puree and thin liquid consistencies. The patient was uncooperative. No initiation of swallow could be accomplished with puree and thin liq uids. No obvious aspiration. IMPRESSION: Limited exam as described. Please refer to the formal report by speech therapy. Fluoroscopic time: 0.6 minutes Number of fluoroscopic images: 2 Signer Name: Alexei Milan Jr, MD Signed: 07/25/2021 1:58 PM Workstation Name: [id number]
[2021-07-25 15:39] VITALS: BP 180/86
[2021-07-25] MEDS: amLODIPine 10 MG TAB PO SCH (15:50)
[2021-07-25] MEDS: GABAPENTIN 300 MG CAP PO SCH (15:50)
[2021-07-25] MEDS: ASPIRIN 325 MG TAB PO SCH (15:50)
[2021-07-25] MEDS: FUROSEMIDE 40 MG TAB PO SCH (15:51)
[2021-07-25] MEDS: METOPROLOL TARTRATE 100 MG TAB PO SCH (15:51)
[2021-07-25] MEDS: CLOPIDOGREL 75 MG TAB PO SCH (15:52)
[2021-07-25] MEDS: LISINOPRIL 40 MG TAB PO SCH (16:58)
--- NOTE | 2021-07-25 17:44 | Progress Note ---
Assessment and Plan (1) Acute CVA (cerebrovascular accident) Current Visit: Yes Status: Acute Plan to address problem: Patient admitted and placed on telemetry. We will commence patient on daily aspirin and statin. Patient will be scheduled for carotid Doppler, echocardiogram and MRI of the brain. Consult placed to neurologist for evaluation. (2) Accelerated hypertension Onset Date: 02/09/16 Current Visit: No Status: Acute Plan to address problem: We will allow patient for permissive hypertension in view of possible CVA. However we will monitor vital signs closely place patient on IV hydralazine as needed. (3) History of coronary artery disease Onset Date: 02/09/16 Current Visit: No Status: Acute Plan to address problem: We will continue routine home medications once reconciled. (4) Hyperlipidemia Current Visit: No Status: Acute Plan to address problem: Patient will be resumed on statin and will monitor lipid profile. (5) Diabetes Onset Date: 02/09/16 Current Visit: No Status: Chronic Plan to address problem: Patient placed on sliding scale insulin and Will monitor Accu-Cheks closely. (6) DVT prophylaxis Onset Date: 02/09/16 Current Visit: No Status: Acute Plan to address problem: Patient placed on subcutaneous heparin. Daily clinical course: 07/20/21: MRI of the brain suggestive for acute stroke, patient noted to be aphasic. Will await for PT and speech eval. Wait for 2D echo and carotid Doppler result. Follow neurology recommendation. 07/21/21: Speech therapy recommended pured diet with thin liquid. Patient has right upper extremity weakness and patient is aphasic. Neurology recommended MRI brain with contrast to rule out any underlying malignancy. 2D echo showed preserved EF. Continue to follow clinically. PT recommended acute rehab. 07/22/21; patient was not admitted for acute rehab b/o elevated BP. 07/23/21; discussed with patient that he needs to take medication 07/24/21; patient unable to swallow, ordered for modified barium swallow study 07/25/21: failed swallow eval, consulted GI for PEG tube Subjective Date of service: 07/25/21 Objective - Constitutional Vitals: Vital Signs - 12hr 07/25/21 07/25/21 07/25/21 07:32 12:00 15:37 Temperature 97.5 F L 98.3 F 99.0 F Pulse Rate 107 H 97 H 124 H Respiratory 20 20 20 Rate Blood Pressure 189/79 180/86 Blood Pressure 108/68 [Right] O2 Sat by Pulse 97 98 95 Oximetry - Labs CBC & Chem 7: 07/20/21 04:38 07/20/21 04:38 Labs: Abnormal lab results 07/24/21 07/25/21 07/25/21 Range/Units 21:43 07:37 16:50 POC Glucose 146 H 154 H 177 H (70-105) mg/dL HEART Score - HEART Score Troponin: Troponin T < 0.010 ng/mL (0.00-0.029) 07/19/21 20:11
[2021-07-31] MEDS ORDERED: cloNIDine TTS 0.3 MG/24 HR PATCH TD SCH (10:00)
[2021-07-31] MEDS ORDERED: cloNIDine TTS 0.2 MG/24 HR PATCH TD SCH ×2 (12:00)
== END 2021-07-25 18:23 | disposition home or self-care (01) | DRG 65 ==
LOC: ED 17:42 → 4A 21:58
PROVIDERS: ADMIT Internal Medicine Geriatric Medicine; ATTEND Internal Medicine
DX: I63.9 Cerebral infarction, unspecified (principal); G81.94 Hemiplegia, unspecified affecting left nondominant side; G81.91 Hemiplegia, unspecified affecting right dominant side; F44.4 Conversion disorder with motor symptom or deficit; I11.0 Hypertensive heart disease with heart failure; I50.9 Heart failure, unspecified; E11.9 Type 2 diabetes mellitus without complications; I25.2 Old myocardial infarction; Z91.013 Allergy to seafood; I25.10 Atherosclerotic heart disease of native coronary artery without angina pectoris; Z95.5 Presence of coronary angioplasty implant and graft; Z79.4 Long term (current) use of insulin; Z79.899 Other long term (current) drug therapy; E78.5 Hyperlipidemia, unspecified; R29.710 NIHSS score 10; R29.810 Facial weakness; R47.01 Aphasia
CPT/HCPCS: 36415; 70450; 70551; 70552; 71045; 74230; 80048; 80053; 80061; 82550; 82553; 82962; 84484; 85025; 85610; 85670; 85730; 93005; 93306; 93880; G0378; A9270-GY; A9575; J0360; J1644; J2060

== ENCOUNTER 2021-09-01 13:15 | Emergency (ER) | payer SELFPAY ==
[2021-09-01 14:46] VITALS: BP 163/90
--- NOTE | 2021-09-01 14:50 | Emergency Department Report ---
ED General Adult HPI - General Chief complaint: High BP Stated complaint: INFECTION Time Seen by Provider: 09/01/21 14:30 Source: patient, family Mode of arrival: Ambulatory Limitations: No Limitations - History of Present Illness Initial comments: Patient unable to speak secondary to a stroke, history provided by patient's with patient's permission, patient is able to shake his head yes and no to answer questions Patient is a 56-year-old male brought in by his with complaints of a possible mouth infection. She states that she could smell a foul odor coming from his mouth. She states it has been approximately 10 years since he has seen a dentist. He denies any sore throat, difficulty swallowing, fever, vomiting. Past medical history of CHF, CAD, hypertension, diabetes, CVA, NM, CAD. No allergies to medications. Patient's states that he does not have a primary care doctor. He takes amlodipine and hydralazine for his blood pressure. - Related Data Previous Rx's Medication Instructions Recorded Last Taken Type lisinopriL [Zestril TAB] 40 mg PO QDAY #30 tablet 10/15/14 07/17/21 Rx Aspirin [Aspirin BABY CHEW TAB] 81 mg PO QDAY #30 tab.chew 07/25/21 Unknown Rx AtorvaSTATin [Lipitor] 40 mg PO QHS #30 tablet 07/25/21 Unknown Rx Clopidogrel [Plavix] 75 mg PO QDAY #30 tablet 07/25/21 Unknown Rx Furosemide [Lasix TAB] 40 mg PO QDAY #30 tablet 07/25/21 Unknown Rx Gabapentin 300 mg PO BID #14 cap 07/25/21 Unknown Rx Metoprolol [Lopressor TAB] 100 mg PO BID #60 tablet 07/25/21 Unknown Rx Potassium Chloride [K-Dur] 20 meq PO QDAY 30 Days #30 tablet 07/25/21 Unknown Rx amLODIPine 10 mg PO QDAY #30 tablet 07/25/21 Unknown Rx hydrALAZINE [Apresoline TAB] 50 mg PO Q8H #90 tablet 07/25/21 Unknown Rx lisinopriL [Zestril TAB] 40 mg PO DAILY #30 tablet 07/25/21 Unknown Rx metFORMIN [Glucophage] 500 mg PO BIDDIAB #60 tablet 07/25/21 Unknown Rx traMADoL [Ultram 50 MG tab] 50 mg PO Q6HR PRN #12 tablet 07/25/21 Unknown Rx Chlorhexidine Mouthwash [Peridex] 15 ml MM BID #1 bottle 09/01/21 Unknown Rx Penicillin Vk [Veetids TAB] 500 mg PO QID 7 Days #56 tablet 09/01/21 Unknown Rx Allergies Allergy/AdvReac Type Severity Reaction Status Date / Time shellfish derived Allergy swelling Verified 07/19/21 19:42 and vomiting ED Review of Systems ROS: Stated complaint: INFECTION Other details as noted in HPI Comment: All other systems reviewed and negative ED Past Medical Hx - Past Medical History Hx Hypertension: Yes Hx Heart Attack/AMI: Yes Hx Congestive Heart Failure: Yes Hx Diabetes: Yes Hx Asthma: No Hx COPD: No Additional medical history: CAD - Surgical History Hx Coronary Stent: Yes - Social History Smoking Status: Never Smoker - Medications Home Medications: Home Medications Medication Instructions Recorded Confirmed Last Taken Type lisinopriL [Zestril TAB] 40 mg PO QDAY #30 tablet 10/15/14 07/20/21 07/17/21 Rx Aspirin [Aspirin BABY CHEW TAB] 81 mg PO QDAY #30 tab.chew 07/25/21 Unknown Rx AtorvaSTATin [Lipitor] 40 mg PO QHS #30 tablet 07/25/21 Unknown Rx Clopidogrel [Plavix] 75 mg PO QDAY #30 tablet 07/25/21 Unknown Rx Furosemide [Lasix TAB] 40 mg PO QDAY #30 tablet 07/25/21 Unknown Rx Gabapentin 300 mg PO BID #14 cap 07/25/21 Unknown Rx Metoprolol [Lopressor TAB] 100 mg PO BID #60 tablet 07/25/21 Unknown Rx Potassium Chloride [K-Dur] 20 meq PO QDAY 30 Days #30 tablet 07/25/21 Unknown Rx amLODIPine 10 mg PO QDAY #30 tablet 07/25/21 Unknown Rx hydrALAZINE [Apresoline TAB] 50 mg PO Q8H #90 tablet 07/25/21 Unknown Rx lisinopriL [Zestril TAB] 40 mg PO DAILY #30 tablet 07/25/21 Unknown Rx metFORMIN [Glucophage] 500 mg PO BIDDIAB #60 tablet 07/25/21 Unknown Rx traMADoL [Ultram 50 MG tab] 50 mg PO Q6HR PRN #12 tablet 07/25/21 Unknown Rx Chlorhexidine Mouthwash [Peridex] 15 ml MM BID #1 bottle 09/01/21 Unknown Rx Penicillin Vk [Veetids TAB] 500 mg PO QID 7 Days #56 tablet 09/01/21 Unknown Rx ED Physical Exam - General Limitations: No Limitations General appearance: alert, in no apparent distress - Head Head exam: Present: atraumatic, normocephalic - Eye Eye exam: Present: normal appearance - ENT ENT exam: Present: mucous membranes moist, other (there are several dental carries and dental decay with missing teeth, small amount of edema to the left lower gumline, uvula is midline, no uvular edema or deviation, no trismus, no tongue elevation, no submandibular edema, left sided facial droop- states chronic from CVA) - Respiratory Respiratory exam: Present: normal lung sounds bilaterally. Absent: respiratory distress, wheezes, rales, rhonchi, stridor, chest wall tenderness, accessory muscle use, decreased breath sounds, prolonged expiratory - Cardiovascular Cardiovascular Exam: Present: regular rate, normal rhythm, normal heart sounds. Absent: systolic murmur, diastolic murmur, rubs, gallop - Neurological Exam Neurological exam: Present: alert - Skin Skin exam: Present: warm, dry, intact ED Course Vital Signs 09/01/21 09/01/21 13:23 14:46 Temperature 98 F Pulse Rate 102 H 86 Respiratory 16 Rate Blood Pressure 201/102 163/90 [Left] O2 Sat by Pulse 98 Oximetry ED Medical Decision Making - Lab Data Vital Signs 09/01/21 09/01/21 13:23 14:46 Temperature 98 F Pulse Rate 102 H 86 Respiratory 16 Rate Blood Pressure 201/102 163/90 [Left] O2 Sat by Pulse 98 Oximetry - Medical Decision Making Patient unable to speak secondary to a stroke, history provided by patient's with patient's permission, patient is able to shake his head yes and no to answer questions Patient is a 56-year-old male brought in by his with complaints of a possible mouth infection. She states that she could smell a foul odor coming from his mouth. She states it has been approximately 10 years since he has seen a dentist. He denies any sore throat, difficulty swallowing, fever, vomiting. Past medical history of CHF, CAD, hypertension, diabetes, CVA, NM, CAD. No allergies to medications. Patient's states that he does not have a primary care doctor. He takes amlodipine and hydralazine for his blood pressure. Init ial vitals with elevated blood pressure which improved upon repeat. On exam: there are several dental carries and dental decay with missing teeth, small amount of edema to the left lower gumline, uvula is midline, no uvular edema or deviation, no trismus, no tongue elevation, no submandibular edema, left sided facial droop- states chronic from CVA. Examination appears insistent with infected dental carry. No signs of facial cellulitis, facial abscess, or Jose's at this time. Patient given a list of community resources for dental and primary care follow-up. Discussed the importance of outpatient follow-up. Advised patient Use medication as prescribed. Follow-up with a dentist. Follow-up with your primary care doctor. Return to emergency room immediately for any new or worsening symptoms. Critical care attestation.: If time is entered above; I have spent that time in minutes in the direct care of this critically ill patient, excluding procedure time. ED Disposition Clinical Impression: Infected dental caries, Elevated blood pressure reading Disposition: 01 HOME / SELF CARE / HOMELESS Is pt being admited?: No Does the pt Need Aspirin: No Condition: Stable Instructions: Dental Abscess, Managing Your Hypertension Additional Instructions: Use medication as prescribed. Follow-up with a dentist. Follow-up with your primary care doctor. Return to emergency room immediately for any new or worsening symptoms. Prescriptions: Chlorhexidine Mouthwash [Peridex] 15 ml MM BID #1 bottle Penicillin Vk [Veetids TAB] 500 mg PO QID 7 Days #56 tablet Referrals: [facility], [LAB/CONTRACT] - 3-5 Days [facility] [Outside] - 3-5 Days [facility] [Outside] - 3-5 Days MONIQUE MAC MD [Staff Physician] - 3-5 Days [facility] [Provider Group] - 3-5 Days Time of Disposition: 14:50 Print Language: HUNGARIAN
== END 2021-09-01 15:36 | disposition home or self-care (01) ==
LOC: ED 13:15
DX: K02.9 Dental caries, unspecified (principal); I10 Essential (primary) hypertension; Z91.013 Allergy to seafood; E11.8 Type 2 diabetes mellitus with unspecified complications; Z86.79 Personal history of other diseases of the circulatory system
CPT/HCPCS: 99282

== ENCOUNTER 2022-01-28 13:21 | Emergency (ER) | payer SELFPAY ==
[2022-01-28] MEDS ORDERED: KETOROLAC 30 MG/1 ML INJ IV ONE (16:34)
--- NOTE | 2022-01-28 16:37 | Emergency Department Report ---
ED Back Pain/Injury HPI - General Chief Complaint: Pain General Stated Complaint: LEFT FLANK PAIN Time Seen by Provider: 01/28/22 16:22 Source: patient Limitations: No Limitations - History of Present Illness Initial Comments: CC: back pain HPI: This is a 56 yo male with hx of CVA, aphasia, HTN, CAD, HLD who presents with left flank pain for one day. Left flank pain radiates to left leg. MD Complaint: back pain -: Gradual Similar Symptoms Previously: No Radiation: left leg Severity: moderate Quality: dull, aching Consistency: constant Improves With: none Worsens With: none Context: unknown Associated Symptoms: denies other symptoms - Related Data Previous Rx's Medication Instructions Recorded Last Taken Type lisinopriL [Zestril TAB] 40 mg PO QDAY #30 tablet 10/15/14 07/17/21 Rx Aspirin [Aspirin BABY CHEW TAB] 81 mg PO QDAY #30 tab.chew 07/25/21 Unknown Rx AtorvaSTATin [Lipitor] 40 mg PO QHS #30 tablet 07/25/21 Unknown Rx Clopidogrel [Plavix] 75 mg PO QDAY #30 tablet 07/25/21 Unknown Rx Furosemide [Lasix TAB] 40 mg PO QDAY #30 tablet 07/25/21 Unknown Rx Gabapentin 300 mg PO BID #14 cap 07/25/21 Unknown Rx Metoprolol [Lopressor TAB] 100 mg PO BID #60 tablet 07/25/21 Unknown Rx Potassium Chloride [K-Dur] 20 meq PO QDAY 30 Days #30 tablet 07/25/21 Unknown Rx amLODIPine 10 mg PO QDAY #30 tablet 07/25/21 Unknown Rx hydrALAZINE [Apresoline TAB] 50 mg PO Q8H #90 tablet 07/25/21 Unknown Rx lisinopriL [Zestril TAB] 40 mg PO DAILY #30 tablet 07/25/21 Unknown Rx metFORMIN [Glucophage] 500 mg PO BIDDIAB #60 tablet 07/25/21 Unknown Rx traMADoL [Ultram 50 MG tab] 50 mg PO Q6HR PRN #12 tablet 07/25/21 Unknown Rx Chlorhexidine Mouthwash [Peridex] 15 ml MM BID #1 bottle 09/01/21 Unknown Rx Penicillin Vk [Veetids TAB] 500 mg PO QID 7 Days #56 tablet 09/01/21 Unknown Rx HYDROcodone/APAP 5-325 [[place] 1 each PO Q6HR PRN #10 tablet 01/28/22 Unknown Rx 5/325] Polyethylene Glycol 3350 [Miralax] 1 cap PO DAILY 7 Days #7 01/28/22 Unknown Rx Allergies Allergy/AdvReac Type Severity Reaction Status Date / Time shellfish derived Allergy swelling Verified 07/19/21 19:42 and vomiting ED Review of Systems ROS: Stated complaint: LEFT FLANK PAIN Other details as noted in HPI Comment: All other systems reviewed and negative Constitutional: denies: chills Respiratory: denies: cough, shortness of breath Cardiovascular: denies: chest pain Gastrointestinal: denies: abdominal pain, nausea, vomiting ED Past Medical Hx - Past Medical History Hx Hypertension: Yes Hx CVA: Yes (6 months ago r ided deficits) Hx Heart Attack/AMI: Yes Hx Congestive Heart Failure: Yes Hx Diabetes: Yes Hx Asthma: No Hx COPD: No Additional medical history: CAD - Surgical History Hx Coronary Stent: Yes - Social History Smoking Status: Former Smoker - Medications Home Medications: Home Medications Medication Instructions Recorded Confirmed Last Taken Type lisinopriL [Zestril TAB] 40 mg PO QDAY #30 tablet 10/15/14 07/20/21 07/17/21 Rx Aspirin [Aspirin BABY CHEW TAB] 81 mg PO QDAY #30 tab.chew 07/25/21 Unknown Rx AtorvaSTATin [Lipitor] 40 mg PO QHS #30 tablet 07/25/21 Unknown Rx Clopidogrel [Plavix] 75 mg PO QDAY #30 tablet 07/25/21 Unknown Rx Furosemide [Lasix TAB] 40 mg PO QDAY #30 tablet 07/25/21 Unknown Rx Gabapentin 300 mg PO BID #14 cap 07/25/21 Unknown Rx Metoprolol [Lopressor TAB] 100 mg PO BID #60 tablet 07/25/21 Unknown Rx Potassium Chloride [K-Dur] 20 meq PO QDAY 30 Days #30 tablet 07/25/21 Unknown Rx amLODIPine 10 mg PO QDAY #30 tablet 07/25/21 Unknown Rx hydrALAZINE [Apresoline TAB] 50 mg PO Q8H #90 tablet 07/25/21 Unknown Rx lisinopriL [Zestril TAB] 40 mg PO DAILY #30 tablet 07/25/21 Unknown Rx metFORMIN [Glucophage] 500 mg PO BIDDIAB #60 tablet 07/25/21 Unknown Rx traMADoL [Ultram 50 MG tab] 50 mg PO Q6HR PRN #12 tablet 07/25/21 Unknown Rx Chlorhexidine Mouthwash [Peridex] 15 ml MM BID #1 bottle 09/01/21 Unknown Rx Penicillin Vk [Veetids TAB] 500 mg PO QID 7 Days #56 tablet 09/01/21 Unknown Rx HYDROcodone/APAP 5-325 [[place] 1 each PO Q6HR PRN #10 tablet 01/28/22 Unknown Rx 5/325] Polyethylene Glycol 3350 [Miralax] 1 cap PO DAILY 7 Days #7 01/28/22 Unknown Rx ED Physical Exam - General Limitations: Language Barrier General appearance: alert, in no apparent distress - Head Head exam: Present: atraumatic, normocephalic - Eye Eye exam: Present: normal appearance - ENT ENT exam: Present: mucous membranes moist - Neck Neck exam: Present: normal inspection, full ROM - Respiratory Respiratory exam: Present: normal lung sounds bilaterally. Absent: respiratory distress, wheezes, rales, rhonchi - Cardiovascular Cardiovascular Exam: Present: regular rate, normal rhythm, normal heart sounds. Absent: systolic murmur, diastolic murmur, rubs, gallop - GI/Abdominal GI/Abdominal exam: Present: soft, normal bowel sounds. Absent: distended, tenderness, guarding, rebound - Rectal Rectal exam: Present: deferred - Extremities Exam Extremities exam: Present: normal inspection - Back Exam Back exam: Present: normal inspection - Neurological Exam Neurological exam: Present: alert, oriented X3 - Psychiatric Psychiatric exam: Present: normal affect, normal mood - Skin Skin exam: Present: warm, dry, intact, normal color. Absent: rash ED Course Vital Signs 01/28/22 01/28/22 01/28/22 13:24 13:45 13:50 Temperature Pulse Rate 86 62 Respiratory 16 17 15 Rate Blood Pressure Blood Pressure 172/104 [Left] O2 Sat by Pulse 96 98 95 Oximetry 01/28/22 01/28/22 01/28/22 13:53 14:00 15:00 Temperature 99.3 F Pulse Rate 67 62 65 Respiratory 16 16 17 Rate Blood Pressure 182/81 178/95 177/82 Blood Pressure [Left] O2 Sat by Pulse 95 98 97 Oximetry ED Medical Decision Making - EKG Data -: EKG Interpreted by Me - EKG Data 01/28/22 17:46 EKG obtained at 1357 EKG interpreted by me Normal sinus rhythm rate 60 bpm normal axis normal intervals no ST elevation nonischemic T wave pattern - Radiology Data Radiology results: report reviewed Patient Name: EDGARDO ROMANO Gender: Male Date of : 1965 Referring Provider: MARQUITA HERZOG Organization: [facility] Accession Number: [id number] Requested Date: January 28, 2022 16:33 Report Status: Final Requested Procedure: 1 Procedure Description: CT abdomen pelvis wo con Modality: CT Findings Reporting MD: Misael Tong Dictation Time: January 28, 2022 16:21 Bulb Sorter: Not available Stereo Compiler Date: CT ABDOMEN AND PELVIS WITHOUT CONTRAST HISTORY: left flank pain. COMPARISON: None. TECHNIQUE: CT images of the abdomen and pelvis were obtained without administration of intravenous contrast. All CT scans at this location are performed using CT dose reduction for ALARA by means of automated exposure control. FINDINGS: Lungs/bones: Lung bases are clear Abdomen/pelvis: Within limits of a noncontrast exam the liver, spleen, adrenal glands, pancreas, gallbladder and upper GI tract appear normal. Coronary artery disease is seen. No free fluid is identified. Mild prominence of the calyces in the left kidney. No definite renal stone is seen. No ureteral dilatation or renal stone is seen. Right kidney appears normal. Constipation is noted. No focal inflammatory change in the bowel loops degenerative changes seen throughout spine IMPRESSION: 1. Mild distention of the left renal calyces however no obstructing renal or ureteral stone is seen. Recently passed calcification cannot be completely excluded. 2. Prostatic calcifications. Prostate is slightly enlarged. Correlate with PSA 3. Constipation Signer Name: Misael Tong MD Signed: 01/28/2022 4:21 PM Workstation Name: [id number] - Medical Decision Making Left flank pain: Differential diagnosis includes renal colic, constipation, lumbar degenerative disc disease. Patient received prescription for [place] and MiraLAX. Referred to internal medicine physician. Critical care attestation.: If time is entered above; I have spent that time in minutes in the direct care of this critically ill patient, excluding procedure time. ED Disposition Clinical Impression: Left flank pain Disposition: 01 HOME / SELF CARE / HOMELESS Is pt being admited?: No Does the pt Need Aspirin: No Condition: Stable Instructions: Flank Pain, Adult, [id number] Prescriptions: Polyethylene Glycol 3350 [Miralax] 1 cap PO DAILY 7 Days #7 HYDROcodone/APAP 5-325 [[place] 5/325] 1 each PO Q6HR PRN #10 tablet PRN Reason: Pain Referrals: MONIQUE MAC MD [Primary Care Provider] - 3-5 Days
--- NOTE | 2022-01-28 17:26 | Cat Scan Report ---
CT ABDOMEN AND PELVIS WITHOUT CONTRAST HISTORY: left flank pain. COMPARISON: None. TECHNIQUE: CT images of the abdomen and pelvis were obtained without administration of intravenous co ntrast. All CT scans at this location are performed using CT dose reduction for ALARA by means of au tomated exposure control. FINDINGS: Lungs/bones: Lung bases are clear Abdomen/pelvis: Within limits of a noncontrast exam the liver, spleen, adrenal glands, pancreas, gal lbladder and upper GI tract appear normal. Coronary artery disease is seen. No free fluid is identifi ed. Mild prominence of the calyces in the left kidney. No definite renal stone is seen. No ureteral d ilatation or renal stone is seen. Right kidney appears normal. Constipation is noted. No focal inflam matory change in the bowel loops degenerative changes seen throughout spine IMPRESSION: 1. Mild distention of the left renal calyces however no obstructing renal or ureteral stone is seen. Recently passed calcification cannot be completely excluded. 2. Prostatic calcifications. Prostate is slightly enlarged. Correlate with PSA 3. Constipation Signer Name: Misael Tong MD Signed: 01/28/2022 5:21 PM Workstation Name: [id number]
[2022-01-28 18:11] VITALS: BP 166/88
--- NOTE | 2022-01-29 09:35 | Electrocardiograph Report ---
[facility] Test Date: 2022-01-28 Test Time: 13:57:22 Pat Name: EDGARDO ROMANO Department: Room: Gender: M International Logistics Manager: MADELINE : 1965 Requested By: LYNN MI Order Number: [id number] Reading MD: Tommy Menchaca Measurements Intervals [place] Rate: 61 P: 65 IA: 142 QRS: 4 QRSD: 88 T: 91 QT: 410 QTc: 412 Interpretive Statements Sinus rhythm Probable left atrial enlargement ST elevation, consider anterior injury Compared to ECG 07/19/2021 20:08:02 ST (T wave) deviation now present Myocardial infarct finding now present T-wave abnormality no longer present Possible ischemia no longer present Electronically Signed On 01-29-2022 9:35:14 EDT by Tommy Menchaca
== END 2022-01-28 18:12 | disposition home or self-care (01) ==
LOC: ED 13:21
DX: R10.9 Unspecified abdominal pain (principal); E11.9 Type 2 diabetes mellitus without complications; I50.9 Heart failure, unspecified; Z87.891 Personal history of nicotine dependence; Z86.73 Personal history of transient ischemic attack (TIA), and cerebral infarction without residual deficits; Z91.013 Allergy to seafood; Z79.82 Long term (current) use of aspirin; Z79.899 Other long term (current) drug therapy
CPT/HCPCS: 74176; 93005; 99284; J1885

== ENCOUNTER 2022-05-30 23:37 | Emergency (ER) | payer OTHER ==
[2022-05-31] MEDS ORDERED: MORPHINE 2 MG/1 ML INJ IV ONE (00:12)
--- NOTE | 2022-05-31 00:18 | Emergency Department Report ---
ED Extremity Problem HPI - General Stated complaint: RIGHT SIDE PAIN Time Seen by Provider: 05/31/22 00:11 - History of Present Illness Initial comments: 56 yo M with history of recent CVA with right sided weakness who now present with right side pain x 24 hours progressively getting worse. No other modifying or associated factors. MD Complaint: extremity pain - Related Data Previous Rx's Medication Instructions Recorded Last Taken Type lisinopriL [Zestril TAB] 40 mg PO QDAY #30 tablet 10/15/14 07/17/21 Rx Aspirin [Aspirin BABY CHEW TAB] 81 mg PO QDAY #30 tab.chew 07/25/21 Unknown Rx AtorvaSTATin [Lipitor] 40 mg PO QHS #30 tablet 07/25/21 Unknown Rx Clopidogrel [Plavix] 75 mg PO QDAY #30 tablet 07/25/21 Unknown Rx Furosemide [Lasix TAB] 40 mg PO QDAY #30 tablet 07/25/21 Unknown Rx Gabapentin 300 mg PO BID #14 cap 07/25/21 Unknown Rx Metoprolol [Lopressor TAB] 100 mg PO BID #60 tablet 07/25/21 Unknown Rx Potassium Chloride [K-Dur] 20 meq PO QDAY 30 Days #30 tablet 07/25/21 Unknown Rx amLODIPine 10 mg PO QDAY #30 tablet 07/25/21 Unknown Rx hydrALAZINE [Apresoline TAB] 50 mg PO Q8H #90 tablet 07/25/21 Unknown Rx lisinopriL [Zestril TAB] 40 mg PO DAILY #30 tablet 07/25/21 Unknown Rx metFORMIN [Glucophage] 500 mg PO BIDDIAB #60 tablet 07/25/21 Unknown Rx traMADoL [Ultram 50 MG tab] 50 mg PO Q6HR PRN #12 tablet 07/25/21 Unknown Rx Chlorhexidine Mouthwash [Peridex] 15 ml MM BID #1 bottle 09/01/21 Unknown Rx Penicillin Vk [Veetids TAB] 500 mg PO QID 7 Days #56 tablet 09/01/21 Unknown Rx HYDROcodone/APAP 5-325 [[place] 1 each PO Q6HR PRN #10 tablet 01/28/22 Unknown Rx 5/325] Polyethylene Glycol 3350 [Miralax] 1 cap PO DAILY 7 Days #7 01/28/22 Unknown Rx Allergies Allergy/AdvReac Type Severity Reaction Status Date / Time shellfish derived Allergy swelling Verified 07/19/21 19:42 and vomiting ED Review of Systems ROS: Stated complaint: RIGHT SIDE PAIN Other details as noted in HPI Comment: All other systems reviewed and negative Musculoskeletal: arthralgia, myalgia ED Past Medical Hx - Past Medical History Hx Hypertension: Yes Hx CVA: Yes (6 months ago r ided deficits) Hx Heart Attack/AMI: Yes Hx Congestive Heart Failure: Yes Hx Diabetes: Yes Hx Asthma: No Hx COPD: No Additional medical history: CAD - Surgical History Hx Coronary Stent: Yes - Social History Smoking Status: Former Smoker - Medications Home Medications: Home Medications Medication Instructions Recorded Confirmed Last Taken Type lisinopriL [Zestril TAB] 40 mg PO QDAY #30 tablet 10/15/14 07/20/21 07/17/21 Rx Aspirin [Aspirin BABY CHEW TAB] 81 mg PO QDAY #30 tab.chew 07/25/21 Unknown Rx AtorvaSTATin [Lipitor] 40 mg PO QHS #30 tablet 07/25/21 Unknown Rx Clopidogrel [Plavix] 75 mg PO QDAY #30 tablet 07/25/21 Unknown Rx Furosemide [Lasix TAB] 40 mg PO QDAY #30 tablet 07/25/21 Unknown Rx Gabapentin 300 mg PO BID #14 cap 07/25/21 Unknown Rx Metoprolol [Lopressor TAB] 100 mg PO BID #60 tablet 07/25/21 Unknown Rx Potassium Chloride [K-Dur] 20 meq PO QDAY 30 Days #30 tablet 07/25/21 Unknown Rx amLODIPine 10 mg PO QDAY #30 tablet 07/25/21 Unknown Rx hydrALAZINE [Apresoline TAB] 50 mg PO Q8H #90 tablet 07/25/21 Unknown Rx lisinopriL [Zestril TAB] 40 mg PO DAILY #30 tablet 07/25/21 Unknown Rx metFORMIN [Glucophage] 500 mg PO BIDDIAB #60 tablet 07/25/21 Unknown Rx traMADoL [Ultram 50 MG tab] 50 mg PO Q6HR PRN #12 tablet 07/25/21 Unknown Rx Chlorhexidine Mouthwash [Peridex] 15 ml MM BID #1 bottle 09/01/21 Unknown Rx Penicillin Vk [Veetids TAB] 500 mg PO QID 7 Days #56 tablet 09/01/21 Unknown Rx HYDROcodone/APAP 5-325 [[place] 1 each PO Q6HR PRN #10 tablet 01/28/22 Unknown Rx 5/325] Polyethylene Glycol 3350 [Miralax] 1 cap PO DAILY 7 Days #7 01/28/22 Unknown Rx ED Physical Exam - General Limitations: No Limitations - Head Head exam: Present: atraumatic, normal inspection - Eye Eye exam: Present: normal appearance Pupils: Present: normal accommodation - ENT ENT exam: Present: normal orophraynx - Neck Neck exam: Present: normal inspection, full ROM. Absent: tenderness - Respiratory Respiratory exam: Present: normal lung sounds bilaterally. Absent: respiratory distress, accessory muscle use - Cardiovascular Cardiovascular Exam: Present: regular rate, normal rhythm, normal heart sounds - GI/Abdominal GI/Abdominal exam: Present: soft, normal bowel sounds. Absent: distended, tenderness - Back Exam Back exam: Present: normal inspection, full ROM. Absent: tenderness - Neurological Exam Neurological exam: Present: alert, oriented X3 - Psychiatric Psychiatric exam: Present: normal affect, normal mood - Skin Skin exam: Present: warm, intact ED Course Vital Signs 05/31/22 05/31/22 00:06 00:20 Temperature 99.2 F Pulse Rate 77 Respiratory 18 Rate Blood Pressure 193/88 Blood Pressure 193/88 [Left] O2 Sat by Pulse 97 96 Oximetry ED Medical Decision Making - Lab Data Result diagrams: 05/31/22 00:54 05/31/22 00:54 - Radiology Data xray humerus noted with no acute finding but DJD at the joint - Medical Decision Making here with right sided pain -- with recent CVA with rightsided weakness-- will go ahead and check routine labs CBC, CMP and UA - Critical care attestation.: If time is entered above; I have spent that time in minutes in the direct care of this critically ill patient, excluding procedure time. ED Disposition Clinical Impression: Pain of right upper arm DJD (degenerative joint disease) Qualifiers: Osteoarthritis location: shoulder Osteoarthritis type: unspecified Laterality: right Qualified Code(s): M19.011 - Primary osteoarthritis, right shoulder Disposition: 01 HOME / SELF CARE / HOMELESS Is pt being admited?: No Does the pt Need Aspirin: No Condition: Stable Instructions: Preventing Osteoarthritis, Adult, How to Use Cold Therapy, [id number] Additional Instructions: Follow the above printed instruction as instructed Take your pain medicine as prescribed to help your symptoms Increase your daily fluid to help your hydration Call and schedule follow-up with your primary doctor in the next 3 to 5 days for progress Please do not hesitate to call or return to emergency if your symptoms worsen Referrals: MONIQUE MAC MD [Primary Care Provider] - 3-5 Days Time of Disposition: 04:53
[2022-05-31 00:20] VITALS: BP 193/88
[2022-05-31 01:04] LABS: RBC,Urine < 1.0 /HPF (0.0-6.0); WBC,Urine < 1.0 /HPF (0.0-6.0)
[2022-05-31 01:08] LABS: Basophils % (Auto) 0.5 % (0.0-1.8); Eosinophils # (Auto) 0.1 K/mm3 (0.0-0.4); Eosinophils % (Auto) 1.4 % (0.0-4.3); Hematocrit 42.9 % (35.5-45.6); Hemoglobin 14.2 gm/dl (11.8-15.2); Lymphocytes # (Auto) 1.7 K/mm3 (1.2-5.4); Lymphocytes % (Auto) 34.1 % (13.4-35.0); Mean Corpuscular HGB Conc 33 % (32-34); Mean Corpuscular Volume 87 fl (84-94); Monocytes # (Auto) 0.4 K/mm3 (0.0-0.8); Platelet Count 137 K/mm3 (140-440); Red Blood Count 4.93 M/mm3 (3.65-5.03); Red Cell Distribution Width 13.7 % (13.2-15.2)
[2022-05-31 01:14] LABS: Bilirubin,Urine Negative (Negative); Blood,Urine Negative (Negative); Color,Urine Yellow (Yellow); Protein,Urine <15 mg/dL mg/dL (Negative); Urobilinogen,Urine < 2.0 mg/dL (<2.0)
[2022-05-31 01:34] LABS: Alanine Aminotransferase 13 units/L (7-56); BUN/Creatinine Ratio 25; Blood Urea Nitrogen 27 mg/dL (9-20); Calcium 9.6 mg/dL (8.4-10.2); Hemolysis Index 12
[2022-05-31 01:45] LABS: Free T4 (Free Thyroxine) 1.14 ng/dL (0.76-1.46)
--- NOTE | 2022-05-31 02:03 | XRay Report ---
RIGHT HAND 3 VIEW(S) INDICATION / CLINICAL INFORMATION: extremity pain COMPARISON: None available. FINDINGS: No fracture, dislocation, or significant soft tissue abnormality is demonstrated. No radiopaque forei gn bodies are identified. IMPRESSION: 1. No acute fracture. No significant abnormality. Signer Name: Rudy Padron II, MD Signed: 05/31/2022 1:59 AM Workstation Name: [id number]
--- NOTE | 2022-05-31 02:04 | XRay Report ---
RIGHT FOREARM 2 VIEW(S) INDICATION / CLINICAL INFORMATION: extremity pain COMPARISON: None available. FINDINGS: No fracture, dislocation, or significant soft tissue abnormality is demonstrated. No radiopaque forei gn bodies are identified. IMPRESSION: 1. No acute findings. No significant abnormality. Signer Name: Rudy Padron II, MD Signed: 05/31/2022 1:59 AM Workstation Name: [id number]
--- NOTE | 2022-05-31 02:04 | XRay Report ---
RIGHT HUMERUS 2 VIEW(S) INDICATION / CLINICAL INFORMATION: extremity pain COMPARISON: None available. FINDINGS: Glenohumeral joint degenerative changes are present with loss of glenohumeral joint space as well as osteophyte formation along the margin of the humeral head. No acute fracture or dislocation. IMPRESSION: 1. Degenerative changes of the right glenohumeral joint. No acute osseous findings. Signer Name: Rudy Padron II, MD Signed: 05/31/2022 2:00 AM Workstation Name: [id number]
== END 2022-05-31 06:36 | disposition home or self-care (01) ==
LOC: ED 23:37
DX: M79.621 Pain in right upper arm (principal); M19.90 Unspecified osteoarthritis, unspecified site; Z91.013 Allergy to seafood; Z87.891 Personal history of nicotine dependence; I10 Essential (primary) hypertension; E11.9 Type 2 diabetes mellitus without complications
CPT/HCPCS: 36415; 73060; 73090; 73130; 80053; 81001; 84439; 84443; 84484; 85025; 96374; 99284; J2270

== ENCOUNTER 2022-07-11 15:17 | Emergency (ER) | payer OTHER ==
[2022-07-11] MEDS ORDERED: MIDAZOLAM 2 MG/2 ML INJ IV ONE (16:43)
[2022-07-11] MEDS ORDERED: METOCLOPRAMIDE 10 MG/2 ML INJ IV ONE (16:43)
[2022-07-11] MEDS ORDERED: hydrALAZINE 20 MG/1 ML INJ IV STA (16:43)
--- NOTE | 2022-07-11 17:02 | Emergency Department Report ---
ED General Adult HPI - General Chief complaint: High BP Stated complaint: possible stroke Time Seen by Provider: 07/11/22 16:33 Source: patient, family, EMS ( EMS documentation not available at time of chart dictation ), RN notes reviewed Mode of arrival: Stretcher Limitations: Other (Patient is aphasic. Patient not able to write anything down.) - History of Present Illness Initial comments: The patient was evaluated in the emergency department for symptoms described in the history of present illness. He/she was evaluated in the context of the [facility] COVID-19 pandemic, which necessitated consideration that the patient might be at risk for infection with the virus that causes COVID-19. Institutional protocols and algorithms that pertain to the evaluation of patients at risk for COVID-19 are in a state of rapid change based on information released by regulatory bodies including the CDC and federal and state organizations. These policies and algorithms were followed during the patient's care in the emergency department. Please note that these policies, procedures and recommendations changed on a rapid basis. This is a 56-year-old gentleman. He appears to have a history of hypertension, high cholesterol, and possible stroke. History obtained from family, patient, and from court security officer pt number [phone] officer who called 911 number [phone] As per officer, emergency medical services were activated because a bystander yolette Soto was concerned that the patient may have been having had a stroke. The officer does not know what specific symptoms the patient was having that might have suggested a stroke. As per his , there is no fever, vomiting, diarrhea, and the patient is ambulatory at his complex. She reports that the patient has been at his baseline to the best of her knowledge. The patient himself is awake, moving 4 extremities, but not verbal. He is not able to write anything down. He indicates that he is having cervical muscular neck pain, and a nonspecific headache. He is not able to describe the qualitative nature of symptoms, exacerbating factors relieving factors or aggr avating factors. Multiple phone calls were made, and patient's , son, or police and fire dispatcher are not able to provide any specific history that would suggest an acute ischemic event. -: unknown Severity scale (0 -10): 0 - Related Data Previous Rx's Medication Instructions Recorded Last Taken Type lisinopriL [Zestril TAB] 40 mg PO QDAY #30 tablet 10/15/14 07/17/21 Rx Aspirin [Aspirin BABY CHEW TAB] 81 mg PO QDAY #30 tab.chew 07/25/21 Unknown Rx AtorvaSTATin [Lipitor] 40 mg PO QHS #30 tablet 07/25/21 Unknown Rx Clopidogrel [Plavix] 75 mg PO QDAY #30 tablet 07/25/21 Unknown Rx Furosemide [Lasix TAB] 40 mg PO QDAY #30 tablet 07/25/21 Unknown Rx Gabapentin 300 mg PO BID #14 cap 07/25/21 Unknown Rx Metoprolol [Lopressor TAB] 100 mg PO BID #60 tablet 07/25/21 Unknown Rx Potassium Chloride [K-Dur] 20 meq PO QDAY 30 Days #30 tablet 07/25/21 Unknown Rx amLODIPine 10 mg PO QDAY #30 tablet 07/25/21 Unknown Rx hydrALAZINE [Apresoline TAB] 50 mg PO Q8H #90 tablet 07/25/21 Unknown Rx lisinopriL [Zestril TAB] 40 mg PO DAILY #30 tablet 07/25/21 Unknown Rx metFORMIN [Glucophage] 500 mg PO BIDDIAB #60 tablet 07/25/21 Unknown Rx traMADoL [Ultram 50 MG tab] 50 mg PO Q6HR PRN #12 tablet 07/25/21 Unknown Rx Chlorhexidine Mouthwash [Peridex] 15 ml MM BID #1 bottle 09/01/21 Unknown Rx Penicillin Vk [Veetids TAB] 500 mg PO QID 7 Days #56 tablet 09/01/21 Unknown Rx HYDROcodone/APAP 5-325 [[place] 1 each PO Q6HR PRN #10 tablet 01/28/22 Unknown Rx 5/325] Polyethylene Glycol 3350 [Miralax] 1 cap PO DAILY 7 Days #7 01/28/22 Unknown Rx Amlodipine Besylate [Norvasc] 5 mg PO QDAY #30 tab 07/11/22 Unknown Rx Aspirin [Vazalore] 81 mg PO QDAY #30 cap 07/11/22 Unknown Rx Atorvastatin Calcium [Lipitor] 80 mg PO QDAY #30 tab 07/11/22 Unknown Rx Clopidogrel [Plavix] 75 mg PO QDAY #30 tablet 07/11/22 Unknown Rx carvediloL [Coreg] 6.25 mg PO BID #60 tablet 07/11/22 Unknown Rx Allergies Allergy/AdvReac Type Severity Reaction Status Date / Time shellfish derived Allergy swelling Verified 07/11/22 16:04 and vomiting ED Review of Systems ROS: Stated complaint: PAIN/VISION CHANGES/HTN Other details as noted in HPI Comment: Unobtainable due to pts medical conditions (Review of systems as per ) Constitutional: denies: fever Eyes: denies: eye discharge Respiratory: denies: cough Cardiovascular: denies: syncope Gastrointestinal: denies: nausea, vomiting, diarrhea ED Past Medical Hx - Past Medical History Previous Medical History?: Yes Hx Hypertension: Yes Hx CVA: Yes (6 months ago r ided deficits) Hx Heart Attack/AMI: Yes Hx Congestive Heart Failure: Yes Hx Diabetes: Yes Hx Asthma: No Hx COPD: No Additional medical history: CAD - Surgical History Past Surgical History?: Yes Hx Coronary Stent: Yes - Social History Smoking Status: Never Smoker Substance Use Type: None - Medications Home Medications: Home Medications Medication Instructions Recorded Confirmed Last Taken Type lisinopriL [Zestril TAB] 40 mg PO QDAY #30 tablet 10/15/14 07/20/21 07/17/21 Rx Aspirin [Aspirin BABY CHEW TAB] 81 mg PO QDAY #30 tab.chew 07/25/21 Unknown Rx AtorvaSTATin [Lipitor] 40 mg PO QHS #30 tablet 07/25/21 Unknown Rx Clopidogrel [Plavix] 75 mg PO QDAY #30 tablet 07/25/21 Unknown Rx Furosemide [Lasix TAB] 40 mg PO QDAY #30 tablet 07/25/21 Unknown Rx Gabapentin 300 mg PO BID #14 cap 07/25/21 Unknown Rx Metoprolol [Lopressor TAB] 100 mg PO BID #60 tablet 07/25/21 Unknown Rx Potassium Chloride [K-Dur] 20 meq PO QDAY 30 Days #30 tablet 07/25/21 Unknown Rx amLODIPine 10 mg PO QDAY #30 tablet 07/25/21 Unknown Rx hydrALAZINE [Apresoline TAB] 50 mg PO Q8H #90 tablet 07/25/21 Unknown Rx lisinopriL [Zestril TAB] 40 mg PO DAILY #30 tablet 07/25/21 Unknown Rx metFORMIN [Glucophage] 500 mg PO BIDDIAB #60 tablet 07/25/21 Unknown Rx traMADoL [Ultram 50 MG tab] 50 mg PO Q6HR PRN #12 tablet 07/25/21 Unknown Rx Chlorhexidine Mouthwash [Peridex] 15 ml MM BID #1 bottle 09/01/21 Unknown Rx Penicillin Vk [Veetids TAB] 500 mg PO QID 7 Days #56 tablet 09/01/21 Unknown Rx HYDROcodone/APAP 5-325 [[place] 1 each PO Q6HR PRN #10 tablet 01/28/22 Unknown Rx 5/325] Polyethylene Glycol 3350 [Miralax] 1 cap PO DAILY 7 Days #7 01/28/22 Unknown Rx Amlodipine Besylate [Norvasc] 5 mg PO QDAY #30 tab 07/11/22 Unknown Rx Aspirin [[place]] 81 mg PO QDAY #30 cap 07/11/22 Unknown Rx Atorvastatin Calcium [Lipitor] 80 mg PO QDAY #30 tab 07/11/22 Unknown Rx Clopidogrel [Plavix] 75 mg PO QDAY #30 tablet 07/11/22 Unknown Rx carvediloL [Coreg] 6.25 mg PO BID #60 tablet 07/11/22 Unknown Rx ED Physical Exam - General Limitations: Other (The patient is not able to talk) General appearance: alert, obese - Head Head exam: Present: atraumatic, normocephalic - Eye Eye exam: Present: normal appearance, EOMI. Absent: nystagmus - ENT ENT exam: Present: normal exam, normal orophraynx, mucous membranes moist, normal external ear exam, other - Neck Neck exam: Present: normal inspection. Absent: tenderness, meningismus - Respiratory Respiratory exam: Present: normal lung sounds bilaterally. Absent: respiratory distress, wheezes, rales, rhonchi, stridor, decreased breath sounds - Cardiovascular Cardiovascular Exam: Present: regular rate, normal rhythm, normal heart sounds. Absent: bradycardia, tachycardia, irregular rhythm, systolic murmur, diastolic murmur, rubs, gallop - GI/Abdominal GI/Abdominal exam: Present: soft. Absent: distended, tenderness, guarding, r ebound, rigid, pulsatile mass - Rectal Rectal exam: Present: deferred - Extremities Exam Extremities exam: Present: normal inspection, full ROM, other (2+ pulses noted in the bilateral upper and lower extremities. There is no palpable cord. negative Homans sign. Muscular compartments are soft. The pelvis is stable.). Absent: pedal edema, calf tenderness - Back Exam Back exam: Present: normal inspection. Absent: tenderness, CVA tenderness (R), CVA tenderness (L), paraspinal tenderness, vertebral tenderness - Neurological Exam Neurological exam: Present: alert, reflexes normal (Downgoing plantar reflexes bilaterally), other (The patient is awake. There is no facial droop. EOMI. 5 out of 5 strength in 4 extremities. Sensation also intact to pinch/pain in 4 extremities) - Psychiatric Psychiatric exam: Present: anxious - Skin Skin exam: Present: warm, dry, intact, normal color. Absent: rash ED Course Vital Signs 07/11/22 07/11/22 07/11/22 15:48 16:03 17:26 Temperature 98.1 F 98.8 F Pulse Rate 100 H 89 93 H Respiratory 16 Rate Blood Pressure 169/99 190/93 Blood Pressure 202/118 169/99 [Right] O2 Sat by Pulse 98 96 Oximetry 07/11/22 18:47 Temperature Pulse Rate 97 H Respiratory 20 Rate Blood Pressure Blood Pressure 184/87 [Right] O2 Sat by Pulse 97 Oximetry ED Medical Decision Making - Lab Data Result diagrams: 07/11/22 17:23 07/11/22 17:23 Vital Signs 07/11/22 07/11/22 07/11/22 15:48 16:03 17:26 Temperature 98.1 F 98.8 F Pulse Rate 100 H 89 93 H Respiratory 16 Rate Blood Pressure 169/99 190/93 Blood Pressure 202/118 169/99 [Right] O2 Sat by Pulse 98 96 Oximetry 07/11/22 18:47 Temperature Pulse Rate 97 H Respiratory 20 Rate Blood Pressure Blood Pressure 184/87 [Right] O2 Sat by Pulse 97 Oximetry Lab Results 07/11/22 07/11/22 07/11/22 Range/Units 16:57 17:23 17:23 WBC 6.9 (4.5-11.0) K/mm3 RBC 5.48 H (3.65-5.03) M/mm3 Hgb 15.5 H (11.8-15.2) gm/dl Hct 47.7 H (35.5-45.6) % MCV 87 (84-94) fl MCH 28 (28-32) pg MCHC 33 (32-34) % RDW 14.0 (13.2-15.2) % Plt Count 159 (140-440) K/mm3 PT 13.6 (12.2-14.9) Sec. INR 0.94 (0.87-1.13) Sodium (137-145) mmol/L Potassium (3.6-5.0) mmol/L Chloride (98-107) mmol/L Carbon Dioxide (22-30) mmol/L Anion Gap mmol/L BUN (9-20) mg/dL Creatinine (0.8-1.3) mg/dL Estimated GFR ml/min BUN/Creatinine Ratio % Glucose (75-100) mg/dL Calcium (8.4-10.2) mg/dL Magnesium (1.7-2.3) mg/dL Total Creatine Kinase (55-170) units/L Troponin T (0.00-0.029) ng/mL Urine Color Straw (Yellow) Urine Turbidity Clear (Clear) Specific [place] (Man) 1.025 (1.003-1.030) Ur Protein (Man) 2+ (Negative) mg/dL Ur Ketones (Man) 5 (Negative) Ur Nitrite (Man) Negative (Negative) Ur Reducing Substances Not Reportable Urine Bilirubin (Man) Negative (Negative) Urine Ictotest Not Reportable Leukocyte Esterase (Man) Negative (Negative) Urine WBC (Auto) 2.0 (0.0-6.0) /HPF Urine RBC (Auto) 1.0 (0.0-6.0) /HPF U Epithel Cells (Auto) < 1.0 (0-13.0) /HPF Urine RBC (Manual) Negative (Negative) Urine Mucus Few /HPF Salicylates (2.8-20.0) mg/dL Acetaminophen (10.0-30.0) ug/mL 07/11/22 07/11/22 07/11/22 Range/Units 17:23 17:23 17:23 WBC (4.5-11.0) K/mm3 RBC (3.65-5.03) M/mm3 Hgb (11.8-15.2) gm/dl Hct (35.5-45.6) % MCV (84-94) fl MCH (28-32) pg MCHC (32-34) % RDW (13.2-15.2) % Plt Count (140-440) K/mm3 PT (12.2-14.9) Sec. INR (0.87-1.13) Sodium 139 (137-145) mmol/L Potassium 4.1 (3.6-5.0) mmol/L Chloride 105.2 (98-107) mmol/L Carbon Dioxide 23 (22-30) mmol/L Anion Gap 15 mmol/L BUN 21 H (9-20) mg/dL Creatinine 0.9 (0.8-1.3) mg/dL Estimated GFR > 60 ml/min BUN/Creatinine Ratio 23 % Glucose 89 (75-100) mg/dL Calcium 9.8 (8.4-10.2) mg/dL Magnesium 1.70 (1.7-2.3) mg/dL Total Creatine Kinase 95 (55-170) units/L Troponin T < 0.010 (0.00-0.029) ng/mL Urine Color (Yellow) Urine Turbidity (Clear) Specific [place] (Man) (1.003-1.030) Ur Protein (Man) (Negative) mg/dL Ur Ketones (Man) (Negative) Ur Nitrite (Man) (Negative) Ur Reducing Substances Urine Bilirubin (Man) (Negative) Urine Ictotest Leukocyte Esterase (Man) (Negative) Urine WBC (Auto) (0.0-6.0) /HPF Urine RBC (Auto) (0.0-6.0) /HPF U Epithel Cells (Auto) (0-13.0) /HPF Urine RBC (Manual) (Negative) Urine Mucus /HPF Salicylates < 0.3 L (2.8-20.0) mg/dL Acetaminophen 5.0 L (10.0-30.0) ug/mL - EKG Data -: EKG Interpreted by Nm EKG shows normal: sinus rhythm Rate: normal - EKG Data Interpretation: unchanged when compared t (This is unchanged from prior EKG from January 2022) 07/11/22 19:31 The EKG is interpreted at 16: 10 There is no prior EKG available for comparison. Sinus rhythm, 85 bpm. Normal axis, normal P wave axis, borderline left ventricular hypertrophy, QTC 4 3 9 ms. This is not a STEMI. - Radiology Data Radiology results: pending, report reviewed, image reviewed CT BRAIN: 07/11/2022 INDICATION / CLINICAL INFORMATION: villanueva w htn. COMPARISON: 07/19/2021 FINDINGS: BRAIN/INTRACRANIAL STRUCTURES: Unenhanced CT images of the brain were obtained and compared to prior exam from 07/19/2021. There has been no change. There is no evidence of acute abnormality. Ventricles and sulci are prominent in size, consistent with age-related atrophic change. Prominent chronic white matter hypoattenuation and focal chronic ischemic changes are present throughout the periventricular and deep white matter of cerebral hemispheres, more prominently in the left frontal lobe. This pattern has not changed when compared to the prior exam. There is no evidence of acute large vessel territory ischemic injury, hemorrhage, or mass. There are no abnormal extra-axial fluid collections. Atherosclerotic vascular calcifications are present in the distal internal carotid arteries and vertebral arteries. EXTRACRANIAL STRUCTURES: Unremarkable. IMPRESSION: No acute abnormality. No change when compared to 07/19/2021. All CT scans at this location are performed using dose reduction to ALARA by means of automated exposure control. Signer Name: Chester Mejia MD Signed: 07/11/2022 4:23 PM Workstation Name: [id number] CHEST 1 VIEW 07/11/2022 4:54 PM INDICATION / CLINICAL INFORMATION: Hypertension, nonspecific chest pain. COMPARISON: One view of the chest from 07/19/2021. FINDINGS: SUPPORT DEVICES: None. HEART / MEDIASTINUM: No significant abnormality. LUNGS / PLEURA: No significant pulmonary abnormality. No significant pleural effusion. No pneumothorax. ADDITIONAL FINDINGS: No significant additional findings. IMPRESSION: 1. No acute abnormality of the c hest. Signer Name: Selvin Gonzales MD Signed: 07/11/2022 4:05 PM Workstation Name: [id number] - Medical Decision Making Differential diagnosis, include not limited to: Hypertension, migraine headache, tension headache, cluster headache Pneumonia, UTI Assessment and plan: 56-year-old gentleman, who was brought to the hospital by EMS, because a bystander was concerned that the patient may have been having a stroke. The patient is aphasic. The patient is moving 4 extremities. His sensation is intact to pinch in 4 extremities. He is manipulating his cell phone without difficulty, and while minimally anxious, does not appear to be in any significant distress. As per collateral information obtained from patient's , son, and officer at the complex, there are no specific symptoms articulated or observed by family members that would be specifically concerning for an acute ischemic event. His current prescription medications include Norvasc, aspirin, atorvastatin, carvedilol, Plavix and Prozac. It is my pain that the patient does not meet criteria for admission or hospitalization. I also contacted the covering hospital physician, Dr. Mary Urbina We discussed the patient's history, physical, laboratory studies and imaging studies and clinical impression. He also recommends that he would not admit this patient for the HPI provided. Patient may have his medications refilled, and follow-up with his outpatient primary care doctor. He is observed in this department for hours without clinical decompensation Critical care attestation.: If time is entered above; I have spent that time in minutes in the direct care of this critically ill patient, excluding procedure time. ED Disposition Clinical Impression: Elevated blood pressure reading, Headache, History of stroke, Medication refill Disposition: HOME / SELF CARE / HOMELESS Is pt being admited?: No Does the pt Need Aspirin: No Condition: Good Additional Instructions: Please follow-up with an outpatient primary care doctor, speech and hearing director or neurologist within the next 5 to 7 days. Please take the prescribed medications as needed and directed. Avoid consumption of alcohol, tobacco and smoke products. Do not drive or operate motor vehicles until cleared to do so by a primary care doctor or neurologist. Please return to the emergency room right away with new pain, worsened pain, migration of pain, projectile vomiting, change in mental status, confusion, inability tolerate liquid feeds, new, worsened or different symptoms not present on the initial emergency room evaluation Referrals: ROSALIO TATE MD [Staff Physician] - 3-5 Days MONIQUE MAC MD [Staff Physician] - 3-5 Days [facility] [Provider Group] - 3-5 Days
--- NOTE | 2022-07-11 17:09 | XRay Report ---
CHEST 1 VIEW 07/11/2022 4:54 PM INDICATION / CLINICAL INFORMATION: Hypertension, nonspecific chest pain. COMPARISON: One view of the chest from 07/19/2021. FINDINGS: SUPPORT DEVICES: None. HEART / MEDIASTINUM: No significant abnormality. LUNGS / PLEURA: No significant pulmonary abnormality. No significant pleural effusion. No pneumothora x. ADDITIONAL FINDINGS: No significant additional findings. IMPRESSION: 1. No acute abnormality of the chest. Signer Name: Selvin Gonzales MD Signed: 07/11/2022 5:05 PM Workstation Name: [id number]
--- NOTE | 2022-07-11 17:27 | Cat Scan Report ---
CT BRAIN: 07/11/2022 INDICATION / CLINICAL INFORMATION: villanueva w htn. COMPARISON: 07/19/2021 FINDINGS: BRAIN/INTRACRANIAL STRUCTURES: Unenhanced CT images of the brain were obtained and compared to prior exam from 07/19/2021. There has been no change. There is no evidence of acute abnormality. Ventricles and sulci are prominent in size, consistent wit h age-related atrophic change. Prominent chronic white matter hypoattenuation and focal chronic ischemic changes are present through out the periventricular and deep white matter of cerebral hemispheres, more prominently in the left f rontal lobe. This pattern has not changed when compared to the prior exam. There is no evidence of acute large vessel territory ischemic injury, hemorrhage, or mass. There are no abnormal extra-axial fluid collections. Atherosclerotic vascular calcifications are present in the distal internal carotid arteries and verte bral arteries. EXTRACRANIAL STRUCTURES: Unremarkable. IMPRESSION: No acute abnormality. No change when compared to 07/19/2021. All CT scans at this location are performed using dose reduction to ALARA by means of automated expos ure control. Signer Name: Chester Mejia MD Signed: 07/11/2022 5:23 PM Workstation Name: [id number]
[2022-07-11 18:04] LABS: Hematocrit 47.7 % (35.5-45.6); Hemoglobin 15.5 gm/dl (11.8-15.2); Mean Corpuscular HGB Conc 33 % (32-34); Mean Corpuscular Volume 87 fl (84-94); Platelet Count 159 K/mm3 (140-440); Red Blood Count 5.48 M/mm3 (3.65-5.03)
[2022-07-11 18:07] LABS: Mucus,Urine FEW /HPF
[2022-07-11 18:12] LABS: INR 0.94 (0.87-1.13)
[2022-07-11 18:12] LABS: Color,Urine Straw (Yellow)
[2022-07-11 18:23] LABS: BUN/Creatinine Ratio 23; Blood Urea Nitrogen 21 mg/dL (9-20); Calcium 9.8 mg/dL (8.4-10.2); Hemolysis Index 29
[2022-07-11 20:27] VITALS: BP 160/89
--- NOTE | 2022-07-13 10:22 | Electrocardiograph Report ---
[facility] Test Date: 2022-07-11 Test Time: 16:10:36 Pat Name: EDGARDO ROMANO Department: Room: Gender: M Payroll Representative: [birth year] : 1965 Requested By: BILL BORGES Order Number: [id number] Reading MD: Catrachito Shepard Measurements Intervals [place] Rate: 85 P: 45 HI: 154 QRS: 8 QRSD: 93 T: 84 QT: 368 QTc: 439 Interpretive Statements Sinus rhythm Probable left atrial enlargement Compared to ECG 01/28/2022 13:57:22 No significant changes Electronically Signed On 07-13-2022 10:21:39 EDT by Catrachito Shepard
== END 2022-07-11 20:26 | disposition home or self-care (01) ==
LOC: ED 15:17
DX: R03.0 Elevated blood-pressure reading, without diagnosis of hypertension (principal); R51.9 Headache, unspecified; Z76.0 Encounter for issue of repeat prescription; I11.0 Hypertensive heart disease with heart failure; I50.9 Heart failure, unspecified; E11.9 Type 2 diabetes mellitus without complications; Z98.890 Other specified postprocedural states; Z79.899 Other long term (current) drug therapy; Z91.013 Allergy to seafood; Z79.82 Long term (current) use of aspirin; Z79.84 Long term (current) use of oral hypoglycemic drugs
CPT/HCPCS: 36415; 70450; 71045; 80048; 81001; 82550; 83735; 84484; 85027; 85610; 87086; 93005; 96374; 96375; 99285; J0360; J2250; J2765; 80320; G0480